=== PATIENT | male | born 1945 | race Two or more races ===

== ENCOUNTER 2019-10-23 13:15 | Outpatient (CLI) | payer MEDICARE, OTHER ==
[~2019-10-23] VITALS: Ht 165.1 cm; Wt 70.8 kg
[2019-10-23] MEDS ORDERED: BENAZEPRIL HCL10 MG ORAL (15:01)
[2019-10-23] MEDS ORDERED: METFORMIN HCL1000 M1 ORAL (15:01)
[2019-10-23] MEDS ORDERED: HYDROCHLOROTHIA25 MG ORAL (15:01)
[2019-10-23] MEDS ORDERED: FLOMAX0.4 MG ORAL (15:01)
[2019-10-23] MEDS ORDERED: ATORVASTATIN CA10 MG ORAL (15:01)
[2019-10-23 15:03] VITALS: BP 133/73
--- NOTE | 2019-10-23 19:45 | Consultation ---
DATE OF CONSULTATION: 10/23/2019 CONSULTING PHYSICIAN: Michael Owen M.D. REFERRING PHYSICIAN: Lucy Fontaine M.D. CHIEF COMPLAINT: Gastric cancer. HISTORY OF PRESENT ILLNESS: This is a 74-year-old male with metastatic gastric cancer, referred to us by oncologist, Dr. Fontaine, for evaluation for endoscopy. PAST MEDICAL HISTORY: 1. Diabetes. 2. BPH. 3. Hypercholesterolemia. 4. Hypertension. 5. Gastric CA. PAST SURGICAL HISTORY: Right total knee replacement, left shoulder surgery. MEDICATIONS: Please see medication reconciliation list. ALLERGIES: No known allergies. FAMILY HISTORY: No family history of GI malignancies. SOCIAL HISTORY: The patient denies any tobacco, alcohol, or drug abuse. REVIEW OF SYSTEMS: Positive for abdominal pain, mostly in the left lower quadrant and diarrhea. PHYSICAL EXAMINATION: VITAL SIGNS: Temperature 98, blood pressure is 133/70, pulse 61, respirations 20. Height is 5 feet 5 inches, weight is 156. HEENT: Normocephalic and atraumatic. Sclerae anicteric. NECK: Supple. No evidence of obvious adenopathy. CARDIOVASCULAR: Regular rate and rhythm. Plus S1 and S2. LUNGS: Clear to auscultation bilaterally. ABDOMEN: Positive bowel sounds. Soft and nontender. No rebound. No guarding. No peritoneal sign. EXTREMITIES: No cyanosis. No clubbing. No edema. ASSESSMENT AND PLAN: This is 74-year-old male with metastatic gastric cancer, was referred to us by oncologist for endoscopy. The patient is scheduled for this coming Monday to get a biopsy of the tissue for diagnosis. I want to thank, Dr. Lucy Fontaine, for this kind referral. Michael Owen M.D. DR: EBONY JOB#: [id number] CC: Lucy Fontaine M.D.; Fax#: [phone]
== END 2019-10-23 15:51 | disposition home or self-care (01) ==
LOC: PAN 13:15
DX: C16.9 Malignant neoplasm of stomach, unspecified (principal); E11.9 Type 2 diabetes mellitus without complications; N40.0 Benign prostatic hyperplasia without lower urinary tract symptoms; E78.00 Pure hypercholesterolemia, unspecified; I10 Essential (primary) hypertension; Z96.651 Presence of right artificial knee joint; R10.9 Unspecified abdominal pain; R19.7 Diarrhea, unspecified

== ENCOUNTER 2019-10-25 09:16 | Day surgery (SDC) | payer MEDICARE, OTHER ==
[~2019-10-25] VITALS: Ht 167.6 cm; Wt 70.3 kg
[2019-10-25] VITALS (7 sets, daily range): BP systolic 111–137; BP diastolic 67–76
--- NOTE | 2019-10-25 08:25 | Anethesia Preoperative Eval ---
Anesthesia Pre-op PMH/ROS General Date of Evaluation: Oct 25, 2019 Time of Evaluation: 08:22 Anesthesiologist: wagner ASA Score: ASA 4 Mallampati Score Class I : Soft palate, uvula, fauces, pillars visible Class II: Soft palate, uvula, fauces visible Class III: Soft palate, base of uvula visible Class IV: Only hard plate visible Mallampati Classification: Class II Surgeon: dionne Diagnosis: tumor in abdomen Surgical Procedure: egd Social History: smoking - nonsmoker Family History: no anesthesia problems Allergies: Coded Allergies: No Known Allergies (Unverified , 10/23/19) Medications: see eMAR Patient NPO?: Yes Past Medical History Cardiovascular: Reports: HTN, other - hypercholesterolemia Gastrointestinal/Genitourinary: Reports: other - gastric cancer, bph Endocrine: Reports: DM Musculoskeletal/Integumentary: Reports: OA, other - right tkr, left shoulder sx Anesthesia Pre-op Phys. Exam Physician Exam Last Vital Signs Date Time Temp Pulse Resp B/P (MAP) Pulse Ox O2 Delivery O2 Flow Rate FiO2 10/25/19 10:05 Room Air 10/25/19 10:02 98.1 53 20 120/72 95 Constitutional: NAD Neurologic: CN 2-12 intact Cardiovascular: RRR Respiratory: CTA Airway Exam Mallampati Score: Class II MO: limited Neck: flexible TMD: 2fb ROM: limited Anesthesia Pre-op A/P Studies Pre-op Studies: EKG - sinus bradycardia, possible anterolateral ischemia age undetermined Risk Assessment & Plan Assessment: asa4 Plan: mac Status Change Before Surgery: No Pre-Antibiotics Drug: Catherine Lan MD Oct 25, 2019 08:25
[~2019-10-25 09:16] MED LIST: ATORVASTATIN CA10 MG ORAL; Atropine Inj 1mg/10ml Syr IV PRN; BENAZEPRIL HCL10 MG ORAL; DiphenhydrAMINE 50mg/ml Inj IVP PRN; FLOMAX0.4 MG ORAL; HYDROCHLOROTHIA25 MG ORAL; LR 1000ml 1,000 ML IVLG SCH; METFORMIN HCL1000 M1 ORAL; Midazolam 2mg/2ml Inj IVP PRN; fentaNYL 100 mcg/2 mL IV PRN
--- NOTE | 2019-10-25 10:24 | Pre-Procedure Note/Attestation ---
Pre-Procedure Note/Attestation Complete Prior to Procedure Planned Procedure: not applicable Procedure Narrative: egd Indications for Procedure Pre-Operative Diagnosis: gastric mass Attestation I attest that I discussed the nature of the procedure; its benefits; risks and complications; and alternatives (and the risks and benefits of such alternatives ), prior to the procedure, with the patient (or the patient's legal assistance representative). I attest that, if there was a reasonable possibility of needing a blood transfusion, the patient (or the patient's legal assistance representative) was given the [facility] standardized written summary, pursuant to the [place] Blood Safety Act ([place] Health and Safety Code # 1645, as amended). I attest that I re-evaluated the patient just prior to the surgery and that there has been no change in the patient's H&P, except as documented below: Michael Owen MD Oct 25, 2019 10:24
--- NOTE | 2019-10-25 10:25 | Short Stay Surgery H&P ---
History of Present Illness History of Present Illness Chief Complaint see recent dictation HPI Napoleon Sheridan is a 74 year old male who was admitted on for Tumor In Abdomen Patient History Allergies: Coded Allergies: No Known Allergies (Unverified , 10/23/19) Medication History Scheduled Atorvastatin Calcium* (Lipitor*), 10 MG ORAL BEDTIME, (Reported) Benazepril Hcl* (Benazepril Hcl*), 10 MG ORAL DAILY, (Reported) Hydrochlorothiazide* (Hydrochlorothiazide*), 25 MG ORAL DAILY, (Reported) Metformin Hcl* (Metformin Hcl*), 1,000 MG ORAL DAILY, (Reported) Tamsulosin HCl (Flomax), 0.4 MG ORAL DAILY, (Reported) Physical Exam Vital Signs Last Vital Signs Date Time Temp Pulse Resp B/P (MAP) Pulse Ox O2 Delivery O2 Flow Rate FiO2 10/25/19 10:05 Room Air 10/25/19 10:02 98.1 53 20 120/72 95 Plan Attestation Are the patient's medical conditions optimized for surgery? Michael Owen MD Oct 25, 2019 10:25
--- NOTE | 2019-10-25 10:56 | Endoscopy Procedure Note ---
Endoscopy Procedure Note General Indication for Procedure: gastric mass Procedures Performed: EGD Operative Findings/Diagnosis: same Specimen: yes Pt Tolerated Procedure Well: Yes Estimated Blood Loss: none Anesthesia Anesthesiologist: varun freeman Anesthesia: general - varun freeman, SARA Inserted Devices Implant(s) used?: No GI Core Measures 50 yrs or older w/o bx or poly: Not Applicable 10yrs. F/U recommended: Not Applicable Michael Owen MD Oct 25, 2019 10:56
[2019-10-25] MEDS ORDERED: LR 1000ml ONE (11:00)
[2019-10-25] MEDS ORDERED: Propofol 200mg/20ml IV ONE (11:00)
[2019-10-25] MEDS ORDERED: Lidocaine 1% MPF 10mg/ml 5ml ONE (11:00)
--- NOTE | 2019-10-25 11:13 | Immediate Post-Op Evaluation ---
Immediate Post-Op Evalulation Immediate Post-Op Evalulation Procedure: egd w/bx Date of Evaluation: Oct 25, 2019 Time of Evaluation: 11:12 IV Fluids: 250ml lr Blood Products: none Estimated Blood Loss: negligible Blood Pressure Systolic: 125 Blood Pressure Diastolic: 65 Pulse Rate: 51 Respiratory Rate: 18 O2 Sat by Pulse Oximetry: 97 Temperature (Fahrenheit): 97.9 Pain Score (1-10): 0 Nausea: No Vomiting: No Complications none Patient Status: awake, reacts, patent Hydration Status: adequate Drug: Catherine Lan MD Oct 25, 2019 11:13
--- NOTE | 2019-10-25 11:14 | 48 Hour Post Anesthesia Eval ---
Post Anesthesia Evaluation Procedure: egd w/bx Date of Evaluation: Oct 25, 2019 Time of Evaluation: 11:14 Blood Pressure Systolic: 120 0: 72 Pulse Rate: 60 Respiratory Rate: 18 Temperature (Fahrenheit): 97.9 O2 Sat by Pulse Oximetry: 98 Airway: patent Nausea: No Vomiting: No Pain Intensity: 0 Hydration Status: adequate Cardiopulmonary Status: stable Mental Status/LOC: patient returned to baseline Post-Anesthesia Complications: none Follow-up care needed: N/A Catherine Arndt MD Oct 25, 2019 11:14
--- NOTE | 2019-10-25 15:15 | Procedure Note ---
DATE OF PROCEDURE: 10/25/2019 SURGEON: Michael Owen M.D. REFERRING PHYSICIAN: Lucy Fontaine M.D. PROCEDURE: Upper endoscopy with biopsy. ANESTHESIA: Per Dr. Hook. INSTRUMENT: Olympus adult flexible upper endoscope. INDICATION: Gastric mass. REASON FOR PROCEDURE: The procedure, risks, benefits, and possible consequences, including hemorrhage, aspiration, perforation and infection, and alternative treatments, were explained to the patient/legal guardian by Dr. Michael Owen and the patient/legal guardian understood and accepted these risks. DESCRIPTION OF PROCEDURE: After informed consent was obtained and the patient was adequately sedated, Olympus upper endoscope was advanced from mouth into the second portion of the duodenum and retroflexion was performed in the stomach. The patient had evidence of GE junction at about 35 cm incisors. Just below the GE junction, there was a mass. This mass covered almost all of the cardia of the stomach. more down into the body. Multiple biopsies from this mass was obtained for diagnosis. At this time, the scope was retrieved and procedure was terminated. SUMMARY OF FINDINGS: Tumor, mostly in the cardia of the stomach, status post numerous biopsies. RECOMMENDATIONS: 1. Follow up biopsy results and treat accordingly. 2. The patient to follow up with Dr. Lucy Fontaine, Hematology/Oncology for a followup. I want to thank, Dr. Fontaine, for this kind referral. Michael Owen M.D. DR: EBONY JOB#: [id number] CC: Lucy Fontaine M.D.; Fax#: [phone]
== END 2019-10-25 12:30 | disposition home or self-care (01) ==
LOC: GAS 09:16
DX: K31.9 Disease of stomach and duodenum, unspecified (principal); Z79.899 Other long term (current) drug therapy; Z79.84 Long term (current) use of oral hypoglycemic drugs; I10 Essential (primary) hypertension; E78.00 Pure hypercholesterolemia, unspecified; Z85.00 Personal history of malignant neoplasm of unspecified digestive organ; E11.9 Type 2 diabetes mellitus without complications; M19.90 Unspecified osteoarthritis, unspecified site; R00.1 Bradycardia, unspecified
CPT/HCPCS: 43239; 82962; 93005; J2704; J7120; 94003; 94150

== ENCOUNTER 2019-10-29 09:42 | Outpatient (CLI) | payer MEDICARE, OTHER ==
[~2019-10-29 09:42] MED LIST changes: -Atropine Inj 1mg/10ml Syr IV PRN; -DiphenhydrAMINE 50mg/ml Inj IVP PRN; -LR 1000ml 1,000 ML IVLG SCH; -Midazolam 2mg/2ml Inj IVP PRN; -fentaNYL 100 mcg/2 mL IV PRN
--- NOTE | 2019-10-29 11:19 | General Progress Note ---
Assessment/Plan Assessment/Plan: gastric ca EGD reviewed with the patient fu oncology Subjective ROS Limited/Unobtainable: Yes Allergies: Coded Allergies: No Known Allergies (Unverified , 10/23/19) Objective General Appearance: alert EENT: normal ENT inspection Neck: supple Cardiovascular: normal rate Respiratory/Chest: lungs clear Abdomen: normal bowel sounds, non tender, soft Michael Owen MD Oct 29, 2019 11:19
[2019-10-29 13:44] VITALS: BP 122/71
== END 2019-10-29 11:42 | disposition home or self-care (01) ==
LOC: PAN 09:42
DX: C16.9 Malignant neoplasm of stomach, unspecified (principal)

== ENCOUNTER 2020-09-21 14:54 | Inpatient (IN) | payer MEDICARE, OTHER ==
[~2020-09-21] VITALS: Ht 162.6 cm; Wt 63.5 kg
[2020-09-21 15:00] VITALS: BP 131/72
--- NOTE | 2020-09-21 15:00 | NUR ---
ED Nurse Note: Pt brought in by ambulance from Dr. Fontaine's office c/o generalized weakness and SOB during chemotherapy treatment. Pt is being treated for stomach ca. Respirations even, mildly labored on 3 L NC. Intermittent non productive cough noted. Pt A+Ox4, calm and cooperative and speaking in complete sentences. Pt is febrile 100.1 orally. HR elevated @ 111, sinus on the monitor. All other vitals stable as documented.
--- NOTE | 2020-09-21 15:00 | NUR ---
Note jean-claudeone in EDM - 09/21/20 at 1731 by GENNA ED Nurse Note: Pt brought in by ambulance from Dr. Fontaine's office c/o generalized weakness and SOB during chemotherapy treatment. Pt is being treated for stomach ca. Respirations even and unlabored on 3 L NC. Intermittent non productive cough noted. Pt A+Ox4, calm and cooperative and speaking in complete sentences. Vitals stable as documented.
--- NOTE | 2020-09-21 15:10 | NUR ---
ED Nurse Note: Left chest portacath noted and accessed before arrival. Patent and intact
[2020-09-21] MEDS ORDERED: Acetaminophen 500mg (ES) tab ORAL ONE (15:45)
[2020-09-21 16:04] LABS: HEMATOCRIT 34.7 % (42.0-52.0); HEMOGLOBIN 11.6 G/DL (14.2-18.0); MEAN CORPUSCULAR VOLUME 96 FL (80-99); PLATELET COUNT 159 K/UL (150-450); RED BLOOD COUNT 3.63 M/UL (4.70-6.10); WHITE BLOOD COUNT 3.9 K/UL (4.8-10.8)
--- NOTE | 2020-09-21 16:11 | Diagnostic Imaging Report ---
Indication: Reason For Exam: SOB Technique: Single AP view of the chest. Comparison: None. Findings: The cardiomediastinal silhouette is within normal limits. There are patchy bilateral airspace opacities and diffuse interstitial opacities. There is interstitial edema. Small bilateral pleural effusions with associated streaky airspace opacities. No pneumothorax. Left approach infusion port which is accessed terminates in the expected location in the SVC. IMPRESSION: 1. Interstitial pulmonary edema with associated bilateral patchy airspace opacities which could represent alveolar edema but superimposed pneumonia should be excluded clinically. 2. Small bilateral pleural effusions with compressive atelectasis.
[2020-09-21 16:28] LABS: ANION GAP 12 mmol/L (5-15); BLOOD UREA NITROGEN 16 mg/dL (7-18); CALCIUM 7.1 MG/DL (8.5-10.1); CARBON DIOXIDE 21 MMOL/L (21-32); CHLORIDE 105 MMOL/L (98-107); CREATININE 0.9 MG/DL (0.55-1.30); POTASSIUM 3.3 MMOL/L (3.5-5.1); SODIUM 138 MMOL/L (136-145)
[2020-09-21] MEDS ORDERED: Azithromycin 500 MG in NS 275 ML IV ONE (16:30)
[2020-09-21] MEDS ORDERED: cefTRIAXone 1 GM in NS 55 ML IVPB ONE (16:30)
[2020-09-21 16:39] LABS: ALANINE AMINOTRANSFERASE 50 U/L (12-78); ALBUMIN 2.4 G/DL (3.4-5.0); ALBUMIN/GLOBULIN RATIO 0.5 (1.0-2.7); ALKALINE PHOSPHATASE 205 U/L (46-116); ASPARTATE AMINO TRANSFERASE 63 U/L (15-37); BILIRUBIN,TOTAL 1.1 MG/DL (0.2-1.0)
[2020-09-21 16:41] LABS: BILIRUBIN,DIRECT 0.3 MG/DL (0.0-0.3)
[2020-09-21 17:00] VITALS: BP 139/74
[2020-09-21 17:12] LABS: INR 1.1 (0.9-1.1); PARTIAL THROMBOPLASTIN TIME 32 SEC (23-33)
[2020-09-21 17:16] LABS: APPEARANCE,URINE CLEAR; BILIRUBIN, URINE NEGATIVE (NEGATIVE); GLUCOSE, URINE (UA) NEGATIVE (NEGATIVE); KETONES,URINE 1+ (NEGATIVE); LEUKOCYTE ESTERASE ,URINE NEGATIVE (NEGATIVE); NITRITE,URINE NEGATIVE (NEGATIVE); PH,URINE 5 (4.5-8.0); PROTEIN,URINE 3+ (NEGATIVE); UROBILINOGEN,URINE 1 MG/DL (0.0-1.0)
[2020-09-21 17:26] LABS: COLOR,URINE YELLOW
--- NOTE | 2020-09-21 17:36 | Emergency Room Report ---
History of Present Illness General Chief Complaint: Generalized Weakness Source: Patient, Medical Record Present Illness HPI 75-year-old male presents for shortness of breath. Brought in by EMS from clinic across the street. Was receiving infusion therapy when he started to feel short of breath. History of stomach cancer. Noted to have a cough which has been chronic for some time. Low-grade fever. Denies chest pain. No other aggravating relieving factors. Denies any other associated symptoms Allergies: Coded Allergies: No Known Allergies (Unverified , 10/23/19) COVID-19 Screening Contact w/high risk pt: No Experienced COVID-19 symptoms?: No COVID-19 Testing performed FRUIT TESTER: No Patient History Past Medical History: DM, HTN, other - stomach ca Past Surgical History: none Pertinent Family History: none Social History: Denies: smoking, alcohol use, drug use Immunizations: UTD Reviewed Nursing Documentation: PMH: Agreed; PSxH: Agreed Nursing Documentation-PMH Hx Cardiac Problems: Yes Hx Hypertension: Yes Hx Diabetes: Yes Hx Cancer: Yes - STOMACH CA Hx Gastrointestinal Problems: Yes - gastric CA Hx Neurological Problems: No Review of Systems All Other Systems: negative except mentioned in HPI Physical Exam Vital Signs Date Time Temp Pulse Resp B/P (MAP) Pulse Ox O2 Delivery O2 Flow Rate FiO2 09/21/20 14:51 100.0 125 18 137/75 (95) 96 Room Air 09/21/20 15:00 3.0 Sp02 EP Interpretation: reviewed, normal General Appearance: no apparent distress, alert, GCS 15, non-toxic Head: normocephalic, atraumatic Eyes: bilateral eye normal inspection, bilateral eye PERRL ENT: hearing grossly normal, normal pharynx, no angioedema, normal voice Neck: full range of motion, supple/symm/no masses Respiratory: chest non-tender, lungs clear, normal breath sounds, speaking full sentences Cardiovascular #1: regular rate, rhythm, no edema Cardiovascular #2: 2+ carotid (R), 2+ carotid (L), 2+ radial (R), 2+ radial (L), 2+ dorsalis pedis (R), 2+ dorsalis pedis (L) Gastrointestinal: normal bowel sounds, non tender, soft, non-distended, no guarding, no rebound Rectal: deferred Genitourinary: normal inspection, no CVA tenderness Musculoskeletal: back normal, normal range of motion, gait/station normal, non- tender Neurologic: alert, motor strength/tone normal, oriented x3, sensory intact, responsive, speech normal Psychiatric: judgement/insight normal, memory normal, mood/affect normal, no suicidal/homicidal ideation Reflexes: 3+ bicep (R), 3+ bicep (L), 3+ tricep (R), 3+ tricep (L), 3+ knee (R), 3+ knee (L) Skin: other - see nursing notes Lymphatic: no adenopathy Medical Decision Making Diagnostic Impression: Primary Impression: Episode of generalized weakness Additional Impressions: Pneumonia Qualified Codes: J18.9 - Pneumonia, unspecified organism Sepsis Qualified Codes: A41.9 - Sepsis, unspecified organism ER Course Hospital Course 75-year-old male presents with shortness of breath after receiving infusion. History of stomach CA. Cough. Differential diagnoses include: Pneumonia, CHF exacerbation, pneumothorax, fluid overload Clinical course Patient placed on stretcher. Isolation. I wore full PPE. On manager monitoring. After initial history and physical, I ordered labs, IV fluids, EKG, chest x-ray, blood cultures, UA. Patient placed on nasal cannula with O2 saturation improving Labs -leukopenia noted, hemoglobin/hematocrit stable, electrolytes okay, lactic elevated, troponin negative Rapid Covid negative CXR - patchy bilateral infiltrates Given 30 cc/kg fluid bolus. Given broad-spectrum antibiotics. Spoke with Dr. Fontaine Case discussed with Dr. Martínez and he agreed to the patient to his service for further care and support I feel this is a highly complex case requiring extensive working including EKG/Rhythm strip, Xray/CT/US, Blood/urine lab work, repeat exams while in ED, and administration of strong opiates/narcotics for pain control, admission to hospital or close patient follow up. Diagnosis - episode of generalized weakness, pneumonia, sepsis Patient admitted to telemetry in serious condition Laboratory Tests Test 09/21/20 15:05 09/21/20 16:15 09/21/20 16:25 09/21/20 20:49 White Blood Count 3.9 K/UL (4.8-10.8) L Red Blood Count 3.63 M/UL (4.70-6.10) L Hemoglobin 11.6 G/DL (14.2-18.0) L Hematocrit 34.7 % (42.0-52.0) L Mean Corpuscular Volume 96 FL (80-99) Mean Corpuscular Hemoglobin 32.0 PG (27.0-31.0) H Mean Corpuscular Hemoglobin Concent 33.4 G/DL (32.0-36.0) Red Cell Distribution Width 17.0 % (11.6-14.8) H Platelet Count 159 K/UL (150-450) Mean Platelet Volume 5.8 FL (6.5-10.1) L Neutrophils (%) (Auto) % (45.0-75.0) Lymphocytes (%) (Auto) % (20.0-45.0) Monocytes (%) (Auto) % (1.0-10.0) Eosinophils (%) (Auto) % (0.0-3.0) Basophils (%) (Auto) % (0.0-2.0) Differential Total Cells Counted 100 Neutrophils % (Manual) 75 % (45-75) Lymphocytes % (Manual) 9 % (20-45) L Monocytes % (Manual) 8 % (1-10) Eosinophils % (Manual) 0 % (0-3) Basophils % (Manual) 0 % (0-2) Band Neutrophils 8 % (0-8) Platelet Estimate Adequate Platelet Morphology Normal Polychromasia 1+ Anisocytosis 1+ Prothrombin Time 11.7 SEC (9.30-11.50) H Prothromb Time International Ratio 1.1 (0.9-1.1) Activated Partial Thromboplast Time 32 SEC (23-33) D-Dimer > 35.20 mg/L FEU Sodium Level 138 MMOL/L (136-145) Potassium Level 3.3 MMOL/L (3.5-5.1) L Chloride Level 105 MMOL/L (98-107) Carbon Dioxide Level 21 MMOL/L (21-32) Anion Gap 12 mmol/L (5-15) Blood Urea Nitrogen 16 mg/dL (7-18) Creatinine 0.9 MG/DL (0.55-1.30) Estimat Glomerular Filtration Rate > 60 mL/min (>60) Glucose Level 141 MG/DL (74-106) H Lactic Acid Level 3.70 mmol/L (0.4-2.0) H 3.60 mmol/L (0.66-2.22) H Calcium Level 7.1 MG/DL (8.5-10.1) L Total Bilirubin 1.1 MG/DL (0.2-1.0) H Direct Bilirubin 0.3 MG/DL (0.0-0.3) Aspartate Amino Transf (AST/SGOT) 63 U/L (15-37) H Alanine Aminotransferase (ALT/SGPT) 50 U/L (12-78) Alkaline Phosphatase 205 U/L (46-116) H Troponin I 0.012 ng/mL (0.000-0.056) Pro-B-Type Natriuretic Peptide 105 pg/mL (0-125) Total Protein 6.8 G/DL (6.4-8.2) Albumin 2.4 G/DL (3.4-5.0) L Globulin 4.4 g/dL Albumin/Globulin Ratio 0.5 (1.0-2.7) L Urine Color Yellow Urine Appearance Clear Urine pH 5 (4.5-8.0) Urine Specific [place] 1.015 (1.005-1.035) Urine Protein 3+ (NEGATIVE) H Urine Glucose (UA) Negative (NEGATIVE) Urine Ketones 1+ (NEGATIVE) H Urine Blood 2+ (NEGATIVE) H Urine Nitrite Negative (NEGATIVE) Urine Bilirubin Negative (NEGATIVE) Urine Urobilinogen 1 MG/DL (0.0-1.0) H Urine Leukocyte Esterase Negative (NEGATIVE) Urine RBC 0-2 /HPF (0 - 0) H Urine WBC 0-2 /HPF (0 - 0) Urine Squamous Epithelial Cells None /LPF (NONE/OCC) Urine Amorphous Sediment Few /LPF (NONE) H Urine Bacteria Few /HPF (NONE) Ferritin 1678 NG/ML (8-388) H Lactate Dehydrogenase 372 U/L (81-234) H C-Reactive Protein, Quantitative 5.6 mg/dL (0.00-0.90) H POC Whole Blood Glucose Pending EKG Diagnostic Results Troponin ordered: Yes Rate: tachycardiac Rhythm: NSR ST Segments: no acute changes ASA given to the pt in ED: No Rhythm Strip Diag. Results EP Interpretation: yes Rhythm: NSR, no PVC's, no ectopy Chest X-Ray Diagnostic Results Chest X-Ray Diagnostic Results : Chest X-Ray Ordered: Yes # of Views/Limited/Complete: 1 View Indication: Shortness of Breath EP Interpretation: Yes Interpretation: no pneumothorax, other - bilateral patchy opacities Impression: Other - pneumonia Electronically Signed by: Electronically signed by Bautista Moise MD Last Vital Signs Date Time Temp Pulse Resp B/P (MAP) Pulse Ox O2 Delivery O2 Flow Rate FiO2 09/21/20 16:33 99.9 09/21/20 15:00 111 26 Nasal Cannula 3.0 09/21/20 15:00 131/72 97 Status: improved Disposition: ADMITTED INPATIENT Condition: Serious Referrals: NON PHYSICIAN (PCP) Bautista Moise MD Sep 21, 2020 17:36
[2020-09-21] MEDS ORDERED: LORazepam Inj 2mg/ml 1ml IV PRN (19:15)
[2020-09-21] MEDS ORDERED: Albuterol/Ipratropium 3ml neb HHN PRN (19:15)
[2020-09-21] MEDS ORDERED: Miralax 17gm pkt ORAL PRN (19:15)
[2020-09-21] MEDS ORDERED: Promethazine/Codeine 5ml UD ORAL PRN (19:15)
--- NOTE | 2020-09-21 19:19 | NUR ---
HAND-OFF: Report given to NICKOLAS Mccormick. Pt in stable condition; plan of care endorsed.
[2020-09-21] MEDS ORDERED: CLOTRIMAZOLE15 GM TOPIC (19:28)
[2020-09-21] MEDS ORDERED: LANSOPRAZOLE30 MG ORAL (19:28)
[2020-09-21] MEDS ORDERED: SIMVASTATIN10 MG ORAL (19:28)
[2020-09-21] MEDS ORDERED: OYSCO 500+D TA1 EAC1 PO (19:28)
[2020-09-21] MEDS ORDERED: HYDROCHLOROTHIA25 MG ORAL (19:28)
[2020-09-21] MEDS ORDERED: METFORMIN HCL850 M1 ORAL (19:28)
[2020-09-21] MEDS ORDERED: COLACE100 MG ORAL (19:28)
[2020-09-21] MEDS ORDERED: GABAPENTIN100 MG ORAL (19:28)
[2020-09-21] MEDS ORDERED: BENAZEPRIL HCL10 MG ORAL (19:28)
[2020-09-21] MEDS ORDERED: PROCHLORPERAZINE5 MG ORAL (19:28)
[2020-09-21] MEDS ORDERED: LOSARTAN POTASS50 MG ORAL (19:28)
[2020-09-21] MEDS ORDERED: FLOMAX0.4 MG ORAL (19:28)
[2020-09-21] MEDS ORDERED: LORATADINE10 M1 PO (19:28)
[2020-09-21] MEDS ORDERED: NEUPOGEN300 MCG/0. IJ (19:32)
--- NOTE | 2020-09-21 20:04 | NUR ---
ED Nurse Note: report given to NICKOLAS Tomas. Will ask tele charge and call back if able to accept pt d/t lactic >3. ED charge aware.
--- NOTE | 2020-09-21 20:30 | NUR ---
ED Nurse Note: pt transfered to tele via gurmatthew accompanied by 2 workforce staffing advisor, per EDMD ok to transfer. Belongings and admission packet sent with pt.
[2020-09-21 20:39] VITALS: BP 108/49
[2020-09-21] MEDS ORDERED: Cefepime HCl 2 GM in D5W 110 ML IV ONE (21:00)
[2020-09-21] MEDS ORDERED: Vancomycin 1 GM in D5W 275 ML IVPB ONE (21:00)
[2020-09-21] MEDS: Heparin 5000 units/ml inj SUBQ SCH (21:12)
[2020-09-21] MEDS: NovoLOG Insulin Flexpen SUBQ SCH (21:19)
[2020-09-22] VITALS: BP 116/70
[2020-09-22 04:00] VITALS: BP 99/48
[2020-09-22] MEDS: NovoLOG Insulin Flexpen SUBQ SCH ×4 (05:56→21:00)
[2020-09-22 07:35] LABS: BASOPHILS % (AUTO) 1.1 % (0.0-2.0); EOSINOPHILS % (AUTO) 0.2 % (0.0-3.0); HEMATOCRIT 28.8 % (42.0-52.0); HEMOGLOBIN 10.1 G/DL (14.2-18.0); LYMPHOCYTES % (AUTO) 2.8 % (20.0-45.0); MEAN CORPUSCULAR VOLUME 92 FL (80-99); MONOCYTES % (AUTO) 12.3 % (1.0-10.0); NEUTROPHILS % (AUTO) 83.5 % (45.0-75.0); PLATELET COUNT 165 K/UL (150-450); RED BLOOD COUNT 3.14 M/UL (4.70-6.10); WHITE BLOOD COUNT 7.9 K/UL (4.8-10.8)
[2020-09-22 07:39] LABS: ALBUMIN 2.2 G/DL (3.4-5.0); BLOOD UREA NITROGEN 22 mg/dL (7-18); CALCIUM 7.4 MG/DL (8.5-10.1); CARBON DIOXIDE 23 MMOL/L (21-32); CHLORIDE 107 MMOL/L (98-107); CREATININE 1.1 MG/DL (0.55-1.30); PHOSPHORUS 3.1 MG/DL (2.5-4.9); POTASSIUM 3.8 MMOL/L (3.5-5.1); SODIUM 139 MMOL/L (136-145)
[2020-09-22 07:40] LABS: ANION GAP 9 mmol/L (5-15)
--- NOTE | 2020-09-22 07:43 | NUR ---
NURSE HAND-OFF REPORT: Important Events on Shift: pt admitted and spike fever Patient Status: stable Diet: ccho medium Pending Orders: y Pending Results/Labs:y Pending MD notification:y Latest Vital Signs: Temperature 97.7 , Pulse 48 , B/P 99 /48 , Respiratory Rate 20 , O2 SAT 98 , Nasal Cannula, O2 Flow Rate 2.0 . Vital Sign Comment: EKG Rhythm: Sinus Bradycardia Rhythm change?: N MD Notified?: - MD Response: Latest Turner Fall Score: 15 Fall Risk: Low Risk Safety Measures: Call light Within Reach, Bed Alarm , Side Rails Side Rails x2, Bed position Low and Locked. Fall Precautions: Door Sign Patient Fall Education Report given to NICKOLAS Conrad.
--- NOTE | 2020-09-22 07:44 | NUR ---
NURSE NOTES: Received patient in bed asleep. No SOB or acute distress. Portacath on left upper chest intact, no bleeding on dressing noted. HOB elevated. Bed locked in low position. Call light within reach. Will continue plan of care.
[2020-09-22 08:00] VITALS: BP 105/49
--- NOTE | 2020-09-22 08:25 | Consultation ---
History of Present Illness General Date patient seen: Sep 22, 2020 Time patient seen: 12:09 Chief Complaint: Generalized Weakness Referring physician: PCP Reason for Consultation: Sepsis Present Illness HPI 75yo M who p/w SOB from clinic. Was getting infusion tx when started to feel SOB. H/o stomach CA. Also with chronic cough, low-grade fever. Here, pt with fever to 100.9 then hypothermic to 96. First with leukopenia to 3.9, now improved to 7s. Rapid COVID testing neg. On floor on 2L NC. Pt is doing well on RA now. He was getting infusion of chemotx and came to hospital because of problems breathing, endorses cough and mild SOB. No COVID contacts. Denies any pain, diarrhea or other complaint. No allergies to abx. Allergies: Coded Allergies: No Known Allergies (Unverified , 10/23/19) Medication History Scheduled Atorvastatin Calcium* (Lipitor*), 10 MG ORAL BEDTIME, (Reported) Benazepril Hcl* (Benazepril Hcl*), 10 MG ORAL DAILY, (Reported) Benazepril Hcl* (Benazepril Hcl*), 10 MG ORAL DAILY, (Reported) Clotrimazole* (Lotrimin*), 1 APPLIC TOPIC TWICE A DAY, (Reported) Docusate Sodium* (Colace*), 100 MG ORAL DAILY, (Reported) Gabapentin* (Gabapentin*), 300 MG ORAL THREE TIMES A DAY, (Reported) Hydrochlorothiazide* (Hydrochlorothiazide*), 25 MG ORAL DAILY, (Reported) Hydrochlorothiazide* (Hydrochlorothiazide*), 25 MG ORAL DAILY, (Reported) Lansoprazole* (Lansoprazole*), 30 MG ORAL DAILY, (Reported) Loratadine (Claritin*), 10 MG PO DAILY, (Reported) Losartan Potassium* (Losartan Potassium*), 50 MG ORAL DAILY, (Reported) Metformin Hcl* (Metformin Hcl*), 1,000 MG ORAL DAILY, (Reported) Metformin Hcl* (Metformin Hcl*), 1,000 MG ORAL DAILY, (Reported) Prochlorperazine Maleate* (Compazine*), 10 MG ORAL Q6H, (Reported) Simvastatin (Zocor), 10 MG ORAL BEDTIME, (Reported) Tamsulosin HCl (Flomax), 0.4 MG ORAL DAILY, (Reported) Tamsulosin HCl (Flomax), 0.4 MG ORAL DAILY, (Reported) Miscellaneous Medications Calcium Carbonate/Vitamin D3 (Oysco 500+D Tablet), 1 EACH PO, (Reported) Filgrastim (Neupogen), 300 MCG IJ, (Reported) Patient History Healthcare decision maker Resuscitation status Advanced Directive on File Review of Systems ROS Narrative 10-point ROS neg except as noted in HPI Physical Exam Physical Exam Narrative Gen: NAD HEENT: NCAT Pulm: BL chest rise on RA Abd: Non-distended Ext: No c/c/e Skin: No visible rashes Neuro: Awake, alert, interactive Last 24 Hour Vital Signs Date Time Temp Pulse Resp B/P (MAP) Pulse Ox O2 Delivery O2 Flow Rate FiO2 09/22/20 08:00 97.5 68 20 105/49 (67) 97 09/22/20 04:00 46 09/22/20 04:00 97.7 48 20 99/48 (65) 98 09/22/20 00:00 54 09/22/20 00:00 96.3 60 20 116/70 (85) 97 09/21/20 22:51 Nasal Cannula 2.0 09/21/20 21:38 96.3 09/21/20 20:40 98.9 76 22 122/84 100 Nasal Cannula 3.0 09/21/20 20:39 100.9 63 22 108/49 (68) 100 09/21/20 17:00 99.8 108 18 139/74 96 Nasal Cannula 3.0 09/21/20 16:33 99.9 09/21/20 15:00 111 26 Nasal Cannula 3.0 09/21/20 15:00 100.1 111 18 131/72 97 Nasal Cannula 3.0 09/21/20 14:51 100.0 125 18 137/75 (95) 96 Room Air Intake and Output 09/21/20 09/22/20 19:00 07:00 Output Total 500 ml Balance -500 ml Output Urine Total 500 ml # Voids 1 Laboratory Tests Test 09/21/20 15:05 09/21/20 16:15 09/21/20 16:25 09/21/20 20:49 White Blood Count 3.9 K/UL (4.8-10.8) L Red Blood Count 3.63 M/UL (4.70-6.10) L Hemoglobin 11.6 G/DL (14.2-18.0) L Hematocrit 34.7 % (42.0-52.0) L Mean Corpuscular Volume 96 FL (80-99) Mean Corpuscular Hemoglobin 32.0 PG (27.0-31.0) H Mean Corpuscular Hemoglobin Concent 33.4 G/DL (32.0-36.0) Red Cell Distribution Width 17.0 % (11.6-14.8) H Platelet Count 159 K/UL (150-450) Mean Platelet Volume 5.8 FL (6.5-10.1) L Neutrophils (%) (Auto) % (45.0-75.0) Lymphocytes (%) (Auto) % (20.0-45.0) Monocytes (%) (Auto) % (1.0-10.0) Eosinophils (%) (Auto) % (0.0-3.0) Basophils (%) (Auto) % (0.0-2.0) Differential Total Cells Counted 100 Neutrophils % (Manual) 75 % (45-75) Lymphocytes % (Manual) 9 % (20-45) L Monocytes % (Manual) 8 % (1-10) Eosinophils % (Manual) 0 % (0-3) Basophils % (Manual) 0 % (0-2) Band Neutrophils 8 % (0-8) Platelet Estimate Adequate Platelet Morphology Normal Polychromasia 1+ Anisocytosis 1+ Prothrombin Time 11.7 SEC (9.30-11.50) H Prothromb Time International Ratio 1.1 (0.9-1.1) Activated Partial Thromboplast Time 32 SEC (23-33) D-Dimer > 35.20 mg/L FEU Sodium Level 138 MMOL/L (136-145) Potassium Level 3.3 MMOL/L (3.5-5.1) L Chloride Level 105 MMOL/L (98-107) Carbon Dioxide Level 21 MMOL/L (21-32) Anion Gap 12 mmol/L (5-15) Blood Urea Nitrogen 16 mg/dL (7-18) Creatinine 0.9 MG/DL (0.55-1.30) Estimat Glomerular Filtration Rate > 60 mL/min (>60) Glucose Level 141 MG/DL (74-106) H Lactic Acid Level 3.70 mmol/L (0.4-2.0) H 3.60 mmol/L (0.66-2.22) H Calcium Level 7.1 MG/DL (8.5-10.1) L Total Bilirubin 1.1 MG/DL (0.2-1.0) H Direct Bilirubin 0.3 MG/DL (0.0-0.3) Aspartate Amino Transf (AST/SGOT) 63 U/L (15-37) H Alanine Aminotransferase (ALT/SGPT) 50 U/L (12-78) Alkaline Phosphatase 205 U/L (46-116) H Troponin I 0.012 ng/mL (0.000-0.056) Pro-B-Type Natriuretic Peptide 105 pg/mL (0-125) Total Protein 6.8 G/DL (6.4-8.2) Albumin 2.4 G/DL (3.4-5.0) L Globulin 4.4 g/dL Albumin/Globulin Ratio 0.5 (1.0-2.7) L Urine Color Yellow Urine Appearance Clear Urine pH 5 (4.5-8.0) Urine Specific [place] 1.015 (1.005-1.035) Urine Protein 3+ (NEGATIVE) H Urine Glucose (UA) Negative (NEGATIVE) Urine Ketones 1+ (NEGATIVE) H Urine Blood 2+ (NEGATIVE) H Urine Nitrite Negative (NEGATIVE) Urine Bilirubin Negative (NEGATIVE) Urine Urobilinogen 1 MG/DL (0.0-1.0) H Urine Leukocyte Esterase Negative (NEGATIVE) Urine RBC 0-2 /HPF (0 - 0) H Urine WBC 0-2 /HPF (0 - 0) Urine Squamous Epithelial Cells None /LPF (NONE/OCC) Urine Amorphous Sediment Few /LPF (NONE) H Urine Bacteria Few /HPF (NONE) Ferritin 1678 NG/ML (8-388) H Lactate Dehydrogenase 372 U/L (81-234) H C-Reactive Protein, Quantitative 5.6 mg/dL (0.00-0.90) H POC Whole Blood Glucose Pending Test 09/22/20 05:45 09/22/20 06:43 POC Whole Blood Glucose Pending White Blood Count 7.9 K/UL (4.8-10.8) # Red Blood Count 3.14 M/UL (4.70-6.10) L Hemoglobin 10.1 G/DL (14.2-18.0) L Hematocrit 28.8 % (42.0-52.0) L Mean Corpuscular Volume 92 FL (80-99) Mean Corpuscular Hemoglobin 32.0 PG (27.0-31.0) H Mean Corpuscular Hemoglobin Concent 34.9 G/DL (32.0-36.0) Red Cell Distribution Width 17.0 % (11.6-14.8) H Platelet Count 165 K/UL (150-450) Mean Platelet Volume 6.1 FL (6.5-10.1) L Neutrophils (%) (Auto) 83.5 % (45.0-75.0) H Lymphocytes (%) (Auto) 2.8 % (20.0-45.0) L Monocytes (%) (Auto) 12.3 % (1.0-10.0) H Eosinophils (%) (Auto) 0.2 % (0.0-3.0) Basophils (%) (Auto) 1.1 % (0.0-2.0) Sodium Level 139 MMOL/L (136-145) Potassium Level 3.8 MMOL/L (3.5-5.1) Chloride Level 107 MMOL/L (98-107) Carbon Dioxide Level 23 MMOL/L (21-32) Anion Gap 9 mmol/L (5-15) Blood Urea Nitrogen 22 mg/dL (7-18) H Creatinine 1.1 MG/DL (0.55-1.30) Estimat Glomerular Filtration Rate > 60 mL/min (>60) Glucose Level 95 MG/DL (74-106) Calcium Level 7.4 MG/DL (8.5-10.1) L Phosphorus Level 3.1 MG/DL (2.5-4.9) Albumin 2.2 G/DL (3.4-5.0) L Microbiology Date/Time Source Procedure Growth Status 09/21/20 16:25 Nasopharynx SARS-CoV-2 RdRp Gene Assay - Final Complete Height (Feet): 5 Height (Inches): 4.00 Weight (Pounds): 140 Medications Current Medications Medications (Trade) Dose Ordered Sig/Kali Route PRN Reason Start Time Stop Time Status Last Admin Dose Admin Acetaminophen (Tylenol) 650 mg Q4H PRN ORAL Temp >100.5 09/21/20 19:15 1/6/21 19:14 09/21/20 21:08 Albuterol/ Ipratropium (Albuterol/ Ipratropium) 3 ml Q4H PRN HHN Shortness of Breath 09/21/20 19:15 09/26/20 19:14 Cefepime HCl 2 gm/ Dextrose 110 ml @ 220 mls/hr Q24H IV 09/22/20 09:00 09/29/20 08:59 Dextrose (Dextrose 50%) 25 ml Q30M PRN IV Hypoglycemia 09/21/20 19:15 12/20/20 19:14 Dextrose (Dextrose 50%) 50 ml Q30M PRN IV Hypoglycemia 09/21/20 19:15 12/20/20 19:14 Heparin Sodium (Porcine) (Heparin 5000 units/ml) 5,000 units EVERY 12 HOURS SUBQ 09/21/20 21:00 11/05/20 20:59 09/21/20 21:12 Insulin Aspart (NovoLOG) BEFORE MEALS AND HS SUBQ 09/21/20 21:00 12/20/20 20:59 09/21/20 21:19 Lorazepam (Ativan 2mg/ml 1ml) 2 mg Q2H PRN IV For Anxiety 09/21/20 19:15 09/28/20 19:14 Ondansetron HCl (Zofran) 4 mg Q6H PRN IVP Nausea & Vomiting 09/21/20 19:15 10/21/20 19:14 Polyethylene Glycol (Miralax) 17 gm DAILYPRN PRN ORAL Constipation 09/21/20 19:15 10/21/20 19:14 Promethazine HCl/ Codeine (Phenergan with Codeine) 5 ml Q4H PRN ORAL For Cough 09/21/20 19:15 10/21/20 19:14 Tamsulosin HCl (Flomax) 0.4 mg DAILY ORAL 09/22/20 09:00 10/22/20 08:59 Vancomycin HCl (Vanco pharmacy to dose) 1 ea DAILY PRN MISC Per rx protocol 09/21/20 19:30 10/21/20 19:29 Vancomycin HCl 750 mg/Sodium Chloride 275 ml @ 183.333 mls/hr Q12H IVPB 09/22/20 09:00 09/27/20 08:59 Assessment/Plan Assessment/Plan: 75yo M with Febrile to 100.9 & hypothermic to 96s Leukopenia >> normal WBC Lymphopenia Possible pna 09/21 BCx p UA neg Resp cx p COVID rapid Ag neg, PCR p CXR: 1. Interstitial pulmonary edema with associated bilateral patchy airspace opacities which could represent alveolar edema but superimposed pneumonia should be excluded clinically. 2. Small bilateral pleural effusions with compressive atelectasis. Cr 1.1 Stomach CA Plan: Cont empiric cefepime/vanco IV #2 for now F/u BCx, Resp cx, COVID PCR Monitor CBC/CMP Monitor temp curve, hemodynamics Monitor resp status D/w RN Thank you for this consult. [facility] will continue to follow. Anna Ladd M.D. Sep 22, 2020 08:25
[2020-09-22] MEDS: Tamsulosin 0.4mg cap ORAL SCH (10:08)
[2020-09-22] MEDS: Cefepime HCl 2 GM in D5W 110 ML IV SCH (10:08)
[2020-09-22] MEDS: Heparin 5000 units/ml inj SUBQ SCH ×2 (10:10→22:06)
[2020-09-22] MEDS: Vancomycin 750mg/NS 275ml IVPB SCH ×4 (10:49→22:04)
[2020-09-22 12:00] VITALS: BP 110/56
--- NOTE | 2020-09-22 12:53 | Consultation ---
History of Present Illness General Date patient seen: Sep 22, 2020 Chief Complaint: Generalized Weakness Referring physician: PCP Reason for Consultation: Sepsis Present Illness HPI 75-year-old male with hx of DM, HTN, stomach cancer presented to ER from a clinic across the street with CC of shortness of breath. She was receiving infusion therapy when he started to feel short of breath. She has a cough which has been chronic for some time and some l ow-grade fever. Denies chest pain. No other aggravating relieving factors. Denies any other associated symptoms Allergies: Coded Allergies: No Known Allergies (Unverified , 10/23/19) Medication History Scheduled Atorvastatin Calcium* (Lipitor*), 10 MG ORAL BEDTIME, (Reported) Benazepril Hcl* (Benazepril Hcl*), 10 MG ORAL DAILY, (Reported) Benazepril Hcl* (Benazepril Hcl*), 10 MG ORAL DAILY, (Reported) Clotrimazole* (Lotrimin*), 1 APPLIC TOPIC TWICE A DAY, (Reported) Docusate Sodium* (Colace*), 100 MG ORAL DAILY, (Reported) Gabapentin* (Gabapentin*), 300 MG ORAL THREE TIMES A DAY, (Reported) Hydrochlorothiazide* (Hydrochlorothiazide*), 25 MG ORAL DAILY, (Reported) Hydrochlorothiazide* (Hydrochlorothiazide*), 25 MG ORAL DAILY, (Reported) Lansoprazole* (Lansoprazole*), 30 MG ORAL DAILY, (Reported) Loratadine (Claritin*), 10 MG PO DAILY, (Reported) Losartan Potassium* (Losartan Potassium*), 50 MG ORAL DAILY, (Reported) Metformin Hcl* (Metformin Hcl*), 1,000 MG ORAL DAILY, (Reported) Metformin Hcl* (Metformin Hcl*), 1,000 MG ORAL DAILY, (Reported) Prochlorperazine Maleate* (Compazine*), 10 MG ORAL Q6H, (Reported) Simvastatin (Zocor), 10 MG ORAL BEDTIME, (Reported) Tamsulosin HCl (Flomax), 0.4 MG ORAL DAILY, (Reported) Tamsulosin HCl (Flomax), 0.4 MG ORAL DAILY, (Reported) Miscellaneous Medications Calcium Carbonate/Vitamin D3 (Oysco 500+D Tablet), 1 EACH PO, (Reported) Filgrastim (Neupogen), 300 MCG IJ, (Reported) Patient History Healthcare decision maker Resuscitation status Advanced Directive on File Past Medical/Surgical History Past Medical/Surgical History: (1) History of hypertension (2) Diabetes mellitus (3) Gastric cancer Review of Systems All Other Systems: negative except mentioned in HPI Physical Exam General Appearance: WD/WN Lines, tubes and drains: peripheral HEENT: normocephalic, atraumatic Neck: non-tender, normal alignment Respiratory/Chest: chest wall non-tender, no respiratory distress Cardiovascular/Chest: normal peripheral pulses, normal rate Abdomen: normal bowel sounds, soft Genitourinary/Rectal: normal genital exam Last 24 Hour Vital Signs Date Time Temp Pulse Resp B/P (MAP) Pulse Ox O2 Delivery O2 Flow Rate FiO2 09/22/20 08:00 97.5 68 20 105/49 (67) 97 09/22/20 04:00 46 09/22/20 04:00 97.7 48 20 99/48 (65) 98 09/22/20 00:00 54 09/22/20 00:00 96.3 60 20 116/70 (85) 97 09/21/20 22:51 Nasal Cannula 2.0 09/21/20 21:38 96.3 09/21/20 20:40 98.9 76 22 122/84 100 Nasal Cannula 3.0 09/21/20 20:39 100.9 63 22 108/49 (68) 100 09/21/20 17:00 99.8 108 18 139/74 96 Nasal Cannula 3.0 09/21/20 16:33 99.9 09/21/20 15:00 111 26 Nasal Cannula 3.0 09/21/20 15:00 100.1 111 18 131/72 97 Nasal Cannula 3.0 09/21/20 14:51 100.0 125 18 137/75 (95) 96 Room Air Intake and Output 09/21/20 09/22/20 19:00 07:00 Output Total 500 ml Balance -500 ml Output Urine Total 500 ml # Voids 1 Laboratory Tests Test 09/21/20 15:05 09/21/20 16:15 09/21/20 16:25 09/21/20 20:49 White Blood Count 3.9 K/UL (4.8-10.8) L Red Blood Count 3.63 M/UL (4.70-6.10) L Hemoglobin 11.6 G/DL (14.2-18.0) L Hematocrit 34.7 % (42.0-52.0) L Mean Corpuscular Volume 96 FL (80-99) Mean Corpuscular Hemoglobin 32.0 PG (27.0-31.0) H Mean Corpuscular Hemoglobin Concent 33.4 G/DL (32.0-36.0) Red Cell Distribution Width 17.0 % (11.6-14.8) H Platelet Count 159 K/UL (150-450) Mean Platelet Volume 5.8 FL (6.5-10.1) L Neutrophils (%) (Auto) % (45.0-75.0) Lymphocytes (%) (Auto) % (20.0-45.0) Monocytes (%) (Auto) % (1.0-10.0) Eosinophils (%) (Auto) % (0.0-3.0) Basophils (%) (Auto) % (0.0-2.0) Differential Total Cells Counted 100 Neutrophils % (Manual) 75 % (45-75) Lymphocytes % (Manual) 9 % (20-45) L Monocytes % (Manual) 8 % (1-10) Eosinophils % (Manual) 0 % (0-3) Basophils % (Manual) 0 % (0-2) Band Neutrophils 8 % (0-8) Platelet Estimate Adequate Platelet Morphology Normal Polychromasia 1+ Anisocytosis 1+ Prothrombin Time 11.7 SEC (9.30-11.50) H Prothromb Time International Ratio 1.1 (0.9-1.1) Activated Partial Thromboplast Time 32 SEC (23-33) D-Dimer > 35.20 mg/L FEU Sodium Level 138 MMOL/L (136-145) Potassium Level 3.3 MMOL/L (3.5-5.1) L Chloride Level 105 MMOL/L (98-107) Carbon Dioxide Level 21 MMOL/L (21-32) Anion Gap 12 mmol/L (5-15) Blood Urea Nitrogen 16 mg/dL (7-18) Creatinine 0.9 MG/DL (0.55-1.30) Estimat Glomerular Filtration Rate > 60 mL/min (>60) Glucose Level 141 MG/DL (74-106) H Lactic Acid Level 3.70 mmol/L (0.4-2.0) H 3.60 mmol/L (0.66-2.22) H Calcium Level 7.1 MG/DL (8.5-10.1) L Total Bilirubin 1.1 MG/DL (0.2-1.0) H Direct Bilirubin 0.3 MG/DL (0.0-0.3) Aspartate Amino Transf (AST/SGOT) 63 U/L (15-37) H Alanine Aminotransferase (ALT/SGPT) 50 U/L (12-78) Alkaline Phosphatase 205 U/L (46-116) H Troponin I 0.012 ng/mL (0.000-0.056) Pro-B-Type Natriuretic Peptide 105 pg/mL (0-125) Total Protein 6.8 G/DL (6.4-8.2) Albumin 2.4 G/DL (3.4-5.0) L Globulin 4.4 g/dL Albumin/Globulin Ratio 0.5 (1.0-2.7) L Urine Color Yellow Urine Appearance Clear Urine pH 5 (4.5-8.0) Urine Specific [place] 1.015 (1.005-1.035) Urine Protein 3+ (NEGATIVE) H Urine Glucose (UA) Negative (NEGATIVE) Urine Ketones 1+ (NEGATIVE) H Urine Blood 2+ (NEGATIVE) H Urine Nitrite Negative (NEGATIVE) Urine Bilirubin Negative (NEGATIVE) Urine Urobilinogen 1 MG/DL (0.0-1.0) H Urine Leukocyte Esterase Negative (NEGATIVE) Urine RBC 0-2 /HPF (0 - 0) H Urine WBC 0-2 /HPF (0 - 0) Urine Squamous Epithelial Cells None /LPF (NONE/OCC) Urine Amorphous Sediment Few /LPF (NONE) H Urine Bacteria Few /HPF (NONE) Ferritin 1678 NG/ML (8-388) H Lactate Dehydrogenase 372 U/L (81-234) H C-Reactive Protein, Quantitative 5.6 mg/dL (0.00-0.90) H POC Whole Blood Glucose Pending Test 09/22/20 05:45 09/22/20 06:43 09/22/20 12:01 POC Whole Blood Glucose Pending 94 MG/DL (74-106) White Blood Count 7.9 K/UL (4.8-10.8) # Red Blood Count 3.14 M/UL (4.70-6.10) L Hemoglobin 10.1 G/DL (14.2-18.0) L Hematocrit 28.8 % (42.0-52.0) L Mean Corpuscular Volume 92 FL (80-99) Mean Corpuscular Hemoglobin 32.0 PG (27.0-31.0) H Mean Corpuscular Hemoglobin Concent 34.9 G/DL (32.0-36.0) Red Cell Distribution Width 17.0 % (11.6-14.8) H Platelet Count 165 K/UL (150-450) Mean Platelet Volume 6.1 FL (6.5-10.1) L Neutrophils (%) (Auto) 83.5 % (45.0-75.0) H Lymphocytes (%) (Auto) 2.8 % (20.0-45.0) L Monocytes (%) (Auto) 12.3 % (1.0-10.0) H Eosinophils (%) (Auto) 0.2 % (0.0-3.0) Basophils (%) (Auto) 1.1 % (0.0-2.0) Sodium Level 139 MMOL/L (136-145) Potassium Level 3.8 MMOL/L (3.5-5.1) Chloride Level 107 MMOL/L (98-107) Carbon Dioxide Level 23 MMOL/L (21-32) Anion Gap 9 mmol/L (5-15) Blood Urea Nitrogen 22 mg/dL (7-18) H Creatinine 1.1 MG/DL (0.55-1.30) Estimat Glomerular Filtration Rate > 60 mL/min (>60) Glucose Level 95 MG/DL (74-106) Calcium Level 7.4 MG/DL (8.5-10.1) L Phosphorus Level 3.1 MG/DL (2.5-4.9) Albumin 2.2 G/DL (3.4-5.0) L Microbiology Date/Time Source Procedure Growth Status 09/21/20 16:25 Nasopharynx SARS-CoV-2 RdRp Gene Assay - Final Complete Height (Feet): 5 Height (Inches): 4.00 Weight (Pounds): 140 Medications Current Medications Medications (Trade) Dose Ordered Sig/Kali Route PRN Reason Start Time Stop Time Status Last Admin Dose Admin Acetaminophen (Tylenol) 650 mg Q4H PRN ORAL Temp >100.5 09/21/20 19:15 10/21/20 19:14 09/21/20 21:08 Albuterol/ Ipratropium (Albuterol/ Ipratropium) 3 ml Q4H PRN HHN Shortness of Breath 09/21/20 19:15 09/26/20 19:14 Cefepime HCl 2 gm/ Dextrose 110 ml @ 220 mls/hr Q24H IV 09/22/20 09:00 09/29/20 08:59 09/22/20 10:08 Dextrose (Dextrose 50%) 25 ml Q30M PRN IV Hypoglycemia 09/21/20 19:15 12/20/20 19:14 Dextrose (Dextrose 50%) 50 ml Q30M PRN IV Hypoglycemia 09/21/20 19:15 12/20/20 19:14 Heparin Sodium (Porcine) (Heparin 5000 units/ml) 5,000 units EVERY 12 HOURS SUBQ 09/21/20 21:00 11/05/20 20:59 09/22/20 10:10 Insulin Aspart (NovoLOG) BEFORE MEALS AND HS SUBQ 09/21/20 21:00 12/20/20 20:59 09/21/20 21:19 Lorazepam (Ativan 2mg/ml 1ml) 2 mg Q2H PRN IV For Anxiety 09/21/20 19:15 09/28/20 19:14 Ondansetron HCl (Zofran) 4 mg Q6H PRN IVP Nausea & Vomiting 09/21/20 19:15 10/21/20 19:14 Pantoprazole (Protonix) 40 mg DAILY ORAL 09/23/20 09:00 10/23/20 08:59 Polyethylene Glycol (Miralax) 17 gm DAILYPRN PRN ORAL Constipation 09/21/20 19:15 10/21/20 19:14 Promethazine HCl/ Codeine (Phenergan with Codeine) 5 ml Q4H PRN ORAL For Cough 09/21/20 19:15 10/21/20 19:14 Tamsulosin HCl (Flomax) 0.4 mg DAILY ORAL 09/22/20 09:00 10/22/20 08:59 09/22/20 10:08 Vancomycin HCl (Vanco pharmacy to dose) 1 ea DAILY PRN MISC Per rx protocol 09/21/20 19:30 10/21/20 19:29 Vancomycin HCl 750 mg/Sodium Chloride 275 ml @ 183.333 mls/hr Q12H IVPB 09/22/20 09:00 09/27/20 08:59 09/22/20 10:49 Assessment/Plan Problem List: (1) Interstitial pneumonia ICD Codes: J84.9 - Interstitial pulmonary disease, unspecified SNOMED: 48484237 (2) Acute respiratory failure ICD Codes: J96.00 - Acute respiratory failure, unspecified whether with hypoxia or hypercapnia SNOMED: 47971849 (3) Episode of generalized weakness ICD Codes: R53.1 - Weakness SNOMED: 58491883 (4) Gastric cancer ICD Codes: C16.9 - Malignant neoplasm of stomach, unspecified SNOMED: 997768665 (5) Diabetes mellitus ICD Codes: E11.9 - Type 2 diabetes mellitus without complications SNOMED: 43309475 (6) History of hypertension ICD Codes: Z86.79 - Personal history of other diseases of the circulatory system SNOMED: 013456313 Assessment/Plan: check sputum for C/s and Covid again BNP in negative. check echo CT of chest to rule out PE ID evaluation sliding scale Dakota Prieto MD Sep 22, 2020 12:53
--- NOTE | 2020-09-22 13:13 | NUR ---
NURSE NOTES: Roselia from lab said not to do covid PCR test ordered today by Dr Prieto since previous PCR was just sent out. Dr Prieto made aware, with orders to DC PCR order given today.
--- NOTE | 2020-09-22 13:45 | Consultation ---
DATE OF CONSULTATION: 09/22/2020 GASTROENTEROLOGY CONSULTATION CONSULTING PHYSICIAN: Michael Owen MD. CHIEF COMPLAINT: Fatigue, weakness, low-grade fever. HISTORY OF PRESENT ILLNESS: This is a pleasant unfortunate 75-year-old male who was getting chemotherapy for metastatic gastric CA and then he felt that he is weak and he had some low-grade fever, was sent to the hospital for evaluation. PAST MEDICAL HISTORY: Significant for, 1. History of gastric cancer. 2. Diabetes. 3. Hypertension. 4. Hypercholesterolemia. 5. Constipation. 6. GERD. 7. BPH. ALLERGIES: No known drug allergies. MEDICATIONS: Please see medication reconciliation list. SOCIAL HISTORY: The patient denies any tobacco, alcohol, or drug abuse. FAMILY HISTORY: Noncontributory. REVIEW OF SYSTEMS: A 10-point review of systems was performed and pertinent positives in HPI. PHYSICAL EXAMINATION: VITAL SIGNS: Temperature 97.5, pulse 68, respirations 20, blood pressure . HEENT: Normocephalic and atraumatic. Sclerae are anicteric. NECK: Supple. No evidence of obvious lymphadenopathy. CARDIOVASCULAR: Regular rate and rhythm. Plus S1, S2. LUNGS: Decreased breath sounds bilaterally based on supine exam. ABDOMEN: Soft, nontender. No rebound. No guarding. No peritoneal sign. EXTREMITIES: No cyanosis, no clubbing, no edema. LABORATORY DATA: White count 7.9, hemoglobin 10, hematocrit 28, platelet count is 165,000. Chem 7, grossly normal. Liver function - AST is 63, ALT of 50, alkaline phosphatase is 205. IMAGING STUDY: The patient had a chest x-ray, which showed interstitial pulmonary edema with associated bilateral patchy airspaces, which could represent alveolar edema, but superimposed pneumonia should be excluded clinically. Small bilateral pleural effusion with compressive atelectasis. ASSESSMENT AND PLAN: This is a 75-year-old male with history of gastric cancer on chemotherapy, admitted to the hospital with weakness, fever, possible pneumonia. GI symptoms at this time is not significant. He is able to eat. Denies any nausea, vomiting, dysphagia, or odynophagia. Denies any melena or hematochezia. He is anemic, most probably from combination of the chemo and also gastric CA. Plan to follow with Oncology recommendation. IV fluids for hydration. Pain management. Follow ID for antibiotics for possible pneumonia. Monitor labs. Continue on PPI and laxatives. Michael Owen M.D. DR: PRABHA JOB#: [id number] CC:
--- NOTE | 2020-09-22 15:26 | NUR ---
CASE MANAGEMENT:REVIEW ' BIBA FROM DR YBARRA'S OFFICE CC; WEAKNESS AND SOB SI: PNA. SEPSIS 100.0 125 18 137/75 96% ON RA WBC-3.9 K-3.3 LACTIC ACID+3.70 IS: 500CC NS BOLUS TYLENOL PO IV ROCEPHIN IV AZITHROMYCIN 1L NS BOLUS X2 : TO TELEMETRY
--- NOTE | 2020-09-22 15:27 | Consultation ---
Consult Note Consult Note I am asked to evaluate the patient at the request of Dr. Martínez for fluid and electrolyte management Patient seen and examined Labs reviewed Consultants notes reviewed Full note to follow 75-year-old male presents for shortness of breath. Brought in by EMS from clinic across the street. Was receiving infusion therapy when he started to feel short of breath. History of stomach cancer. Noted to have a cough which has been chronic for some time. Low-grade fever. Denies chest pain. No other aggravating relieving factors. Denies any other associated symptoms Allergies: No Known Allergies (Unverified , 10/23/19) COVID-19 Screening Contact w/high risk pt: No Experienced COVID-19 symptoms?: No COVID-19 Testing performed GOL[employer]MER: No Past Medical History: DM, HTN, other - stomach ca Past Surgical History: none Pertinent Family History: none Social History: Denies: smoking, alcohol use, drug use Immunizations: UTD Reviewed Nursing Documentation: PMH: Agreed; PSxH: Agreed Hx Cardiac Problems: Yes Hx Hypertension: Yes Hx Diabetes: Yes Hx Cancer: Yes - STOMACH CA Hx Gastrointestinal Problems: Yes - gastric CA Vital Signs ER Date Time Temp Pulse Resp B/P (MAP) Pulse Ox O2 Delivery O2 Flow Rate FiO2 09/21/20 14:51 100.0 125 18 137/75 (95) 96 Room Air 09/21/20 15:00 3.0 PHYSICAL EXAMINATION: VITAL SIGNS: Temperature 97.5, pulse 68, respirations 20, blood pressure 137/75. HEENT: Normocephalic and atraumatic. Sclerae are anicteric. NECK: Supple. No evidence of obvious lymphadenopathy. CARDIOVASCULAR: Regular rate and rhythm. Plus S1, S2. LUNGS: Decreased breath sounds bilaterally based on supine exam. ABDOMEN: Soft, nontender. No rebound. No guarding. No peritoneal sign. EXTREMITIES: No cyanosis, no clubbing, no edema. LABORATORY DATA: White count 7.9, hemoglobin 10, hematocrit 28, platelet count is 165,000. Chem 7, grossly normal. Liver function - AST is 63, ALT of 50, alkaline phosphatase is 205. IMAGING STUDY: The patient had a chest x-ray, which showed interstitial pulmonary edema with associated bilateral patchy airspaces, which could represent alveolar edema, but superimposed pneumonia should be excluded clinically. Small bilateral pleural effusion with compressive atelectasis. . Assessment/Plan Electrolyte imbalance 3+ proteinuria Diabetes mellitus Hypertension History of gastric cancer BPH Anemia Febrile, leukopenia, lymphopenia Chest x-ray: Alveolar edema/superimposed pneumonia/small bilateral pleural effusion Per consultants Monitor renal parameters and electrolytes Monitor urine output Keep the blood pressure over 95 systolic Hydrate as needed Anemia work-up Further comments after the labs results and urine studies Real Altman MD Sep 22, 2020 15:27
[2020-09-22 16:00] VITALS: BP 115/52
--- NOTE | 2020-09-22 16:25 | Diagnostic Imaging Report ---
EXAM: ULTRASOUND Venous Duplex Scan Conner Leg CLINICAL HISTORY: Leg pain and edema. Shortness of breath.. COMPARISON: None TECHNIQUE: Doppler examination include grayscale images obtained with and without compression, and color and spectral doppler analysis. FINDINGS: Doppler examination shows normal spontaneity, phasicity, compressibility in the bilateral lower extremities. There is no thrombus identified by grayscale. Normal color and spectral flow is identified. There is no evidence of valvular incompetency or insufficiency. IMPRESSION: UNREMARKABLE VENOUS DUPLEX.
--- NOTE | 2020-09-22 16:37 | Diagnostic Imaging Report ---
EXAM: CT CTA Chest w Contrast CLINICAL HISTORY: Dyspnea. TECHNIQUE: CT angiogram of the pulmonary vasculature performed with IV contrast. 2-D and 3-D reformat images obtained. All CT scans at this facility are performed using dose modulation techniques as appropriate to a performed exam including the following: automated exposure control with adjustment of the mA and/or kV according to patient size. RADIATION DOSE: CTDIvol: 22.6 mGy DLP: 188.8 mGy-cm Dose information generated by the CT scanner is available in PACS. COMPARISON: None FINDINGS: Studies limited by significant respiratory motion artifacts. There appears to be good opacification of the pulmonary vasculature noted There is no central filling defects or thrombus identified. Peripheral subsegmental branches are grossly unremarkable to the extent visualized. The aorta is normal in caliber and there is no intimal flap or dissection. There is no mediastinal mass or adenopathy. Multifocal bilateral infiltrates noted. There is some mild central bronchiectasis. A tiny amount of free fluid noted adjacent to the liver in the right upper quadrant. There is no acute osseous abnormality noted. IMPRESSION: STUDY LIMITED BY RESPIRATORY MOTION ARTIFACT. NO EVIDENCE OF PULMONARY EMBOLISM TO THE EXTENT VISUALIZED. BILATERAL MULTIFOCAL INFILTRATES.
--- NOTE | 2020-09-22 17:35 | History & Physical ---
History and Physical History & Physicial Dictated for Int Med-DR Martínez no. [id number] Familia Mak MD Sep 22, 2020 17:35
--- NOTE | 2020-09-22 18:30 | History and Physical Report ---
DATE OF ADMISSION: 09/21/2020 CHIEF COMPLAINT: The patient is a 75-year-old male with history of gastric cancer, who presents with chief complaint of shortness of breath. HISTORY OF PRESENT ILLNESS: The patient was diagnosed with gastric cancer in October of 2019. The patient is currently undergoing chemotherapy with Dr. Lucy Fontaine every two weeks. The patient was at Dr. Fontaine's office on September 21, 2020. The patient became short of breath. EMS was called. The patient was evaluated in [place] emergency room. A chest x-ray revealed bilateral pneumonia. The patient is admitted with shortness of breath and bilateral pneumonia to rule out COVID-19 pneumonia. REVIEW OF SYSTEMS: CONSTITUTIONAL: The patient denies weight loss or weight gain. The patient denies fever or chills. HEENT: The patient denies ear or throat pain. The patient denies headache. CARDIOVASCULAR: The patient denies palpitations or chest pain. CHEST: The patient complains of shortness of breath as above. The patient denies wheezes. ABDOMEN: The patient denies nausea, vomiting, diarrhea, or constipation. GENITOURINARY: The patient denies dysuria or increased frequency of urination. NEUROMUSCULAR: The patient denies seizures or generalized weakness. PAST MEDICAL HISTORY: Significant for: 1. Gastric cancer with metastasis. 2. Diabetes type 2. 3. Hypertension. PAST SURGICAL HISTORY: Significant for right knee surgery. CURRENT MEDICATIONS: 1. Claritin 10 mg one tablet p.o. daily. 2. Guaifenesin with codeine one teaspoon p.o. every 6 hours p.r.n. 3. Imodium 2 mg p.o. every 4 hours p.r.n. 4. Protonix . 5. Prevacid 30 mg p.o. daily. 6. Ondansetron 8 mg p.o. every 6 hours p.r.n. nausea and vomiting. 7. Oxaliplatin 150 mg intravenously every other week. 8. Calcium carbonate 500 mg p.o. daily. 9. Compazine 10 mg p.o. four times a day p.r.n. ALLERGIES: No known drug allergies. SOCIAL HISTORY: The patient is single and lives with his adult son. The patient denies tobacco or alcohol use. PHYSICAL EXAMINATION: VITAL SIGNS: Temperature 100 degrees Fahrenheit, respirations 18, pulse 125, blood pressure 137/75. GENERAL: The patient is a well-developed and well-nourished male, in no apparent distress. HEENT: Eyes, pupils are equal and responsive to light and accommodation. Extraocular movements are intact. NECK: Supple without lymphadenopathy. CHEST: Decreased breath sounds bilateral bases with expiratory wheezes, otherwise without wheezes or rales. CARDIOVASCULAR: Tachycardic, regular rhythm and rate. S1, S2 normal without murmurs, rubs, or gallops. ABDOMEN: Soft, nontender, and nondistended. Positive bowel sounds. No evidence of hepatosplenomegaly. Currently, no rebound or guarding noted. EXTREMITIES: Negative for clubbing, cyanosis, or edema. RECTAL/GENITAL: Not performed. NEUROLOGIC: Cranial nerves II through XII grossly intact without focal deficits. Motor strength is 5/5 bilaterally. Deep tendon reflexes are 2+ plantars. LABORATORY STUDIES: WBC 3.9, hemoglobin 11.6, hematocrit 34.7, platelets 159,000. Sodium 138, potassium 3.3, chloride 105, CO2 21, BUN 16, creatinine 0.9. Glucose 141. AST elevated at 63, total bilirubin elevated at 1.1, alkaline phosphatase elevated at 205. Troponin is 0.012. Chest x-ray revealed multiple bilateral patchy airspace opacities consistent with pneumonia. ASSESSMENT: This is a 75-year-old male with: 1. Pneumonia. 2. Dyspnea. 3. Gastric cancer with metastasis. 4. Hypertension. 5. Diabetes. TREATMENT: 1. Pneumonia. An Infectious Disease consultation has been obtained with Dr. Hope. The patient has been started empirically on vancomycin and cefepime. Await sputum cultures. 2. Dyspnea. This probably secondary to pneumonia as above. A COVID-19 swab is pending. 3. Gastric cancer. The patient is followed as an outpatient by Dr. Lucy Fontaine. 4. Hypertension. The patient is currently hypotensive. 5. Diabetes type 2. The patient's glucose is currently within normal limits. Familia Mak M.D. DR: LESLY JOB#: [id number] CC:
--- NOTE | 2020-09-22 19:14 | NUR ---
NURSE HAND-OFF REPORT: Important Events on Shift:cta chest done, negative for PE. Venous duplex done, negative. Patient Status: alert, pleasant Diet: ccho medium Pending Orders: Pending Results/Labs: Pending MD notification: Latest Vital Signs: Temperature 98.9 , Pulse 64 , B/P 115 /52 , Respiratory Rate 20 , O2 SAT 95 , Room Air, O2 Flow Rate 2.0 . Vital Sign Comment: EKG Rhythm: Sinus Rhythm Rhythm change?: N MD Notified?: N - MD Response: Latest Turner Fall Score: 15 Fall Risk: Low Risk Safety Measures: Call light Within Reach, Bed Alarm , Side Rails Side Rails x2, Bed position Low and Locked. Fall Precautions: Door Sign Patient Fall Education Report given to nia OLMOS.
[2020-09-22 20:00] VITALS: BP 110/58
[2020-09-23] VITALS: BP 122/56
--- NOTE | 2020-09-23 00:31 | NUR ---
NURSE NOTES: Received pt from Anamaria, RN. Pt awake, alert, and talkative. Bed in lowest position. Call light within reach. Will continue to monitor.
[2020-09-23] MEDS: NovoLOG Insulin Flexpen SUBQ SCH ×4 (06:30→21:00)
--- NOTE | 2020-09-23 06:36 | General Progress Note ---
Subjective ROS Limited/Unobtainable: Yes Allergies: Coded Allergies: No Known Allergies (Unverified , 10/23/19) Objective Last 24 Hour Vital Signs Date Time Temp Pulse Resp B/P (MAP) Pulse Ox O2 Delivery O2 Flow Rate FiO2 09/23/20 00:00 67 09/23/20 00:00 98.8 58 18 122/56 (78) 95 09/22/20 21:00 Room Air 09/22/20 20:00 98.8 65 18 110/58 (75) 95 09/22/20 20:00 52 09/22/20 16:00 64 09/22/20 16:00 98.9 68 20 115/52 (73) 95 09/22/20 12:00 97.3 55 22 110/56 (74) 96 09/22/20 12:00 61 09/22/20 09:00 Room Air 09/22/20 08:00 76 09/22/20 08:00 97.5 68 20 105/49 (67) 97 Intake and Output 09/22/20 09/23/20 19:00 07:00 Intake Total 360 ml Output Total 450 ml Balance -90 ml Intake Oral 360 ml Output Urine Total 450 ml # Voids 1 Laboratory Tests 09/22/20 06:43: White Blood Count 7.9#, Red Blood Count 3.14L, Hemoglobin 10.1L, Hematocrit 28.8L, Mean Corpuscular Volume 92, Mean Corpuscular Hemoglobin 32.0H, Mean Corpuscular Hemoglobin Concent 34.9, Red Cell Distribution Width 17.0H, Platelet Count 165, Mean Platelet Volume 6.1L, Neutrophils (%) (Auto) 83.5H, Lymphocytes (%) (Auto) 2.8L, Monocytes (%) (Auto) 12.3H, Eosinophils (%) (Auto) 0.2, Basophils (%) (Auto) 1.1, Sodium Level 139, Potassium Level 3.8, Chloride Level 107, Carbon Dioxide Level 23, Anion Gap 9, Blood Urea Nitrogen 22H, Creatinine 1.1, Estimat Glomerular Filtration Rate > 60, Glucose Level 95, Calcium Level 7.4L, Phosphorus Level 3.1, Albumin 2.2L 09/22/20 12:01: POC Whole Blood Glucose 94 09/22/20 16:49: POC Whole Blood Glucose 114H 09/22/20 22:16: POC Whole Blood Glucose [Pending] Height (Feet): 5 Height (Inches): 4.00 Weight (Pounds): 140 General Appearance: no apparent distress EENT: normal ENT inspection Neck: supple Cardiovascular: normal rate Respiratory/Chest: decreased breath sounds Abdomen: normal bowel sounds, non tender, soft Extremities: non-tender Assessment/Plan Assessment/Plan: 1. History of gastric cancer. 2. Diabetes. 3. Hypertension. 4. Hypercholesterolemia. 5. Constipation. 6. GERD. 7. BPH. fu H&H monitor po intake fu oncology recs DM control will fu Michael Owen MD Sep 23, 2020 06:36
--- NOTE | 2020-09-23 07:25 | NUR ---
NURSE NOTES: Report received from Genoveva OLMOS. Patient is observed in bed, awake, alert, oriented, and able to make needs known. Respiratory even and unlabored. IV site is asymptomatic, patent, and intact. Bed is in lowest position with side rails up x2 and brakes are engaged. Bed alarm is on. Encouraged patient to use call light when in need of assistance, pt verbalized understanding. Will continue to monitor.
[2020-09-23 08:00] VITALS: BP 151/86
--- NOTE | 2020-09-23 08:21 | NUR ---
NURSE NOTES: Notified Dr. Martínez regarding port-a-cath has been accessed since admission, per eliana MOSQUEDA to use port-a-cath. Will carry out order.
--- NOTE | 2020-09-23 08:23 | Infectious Diseases Prog Note ---
Assessment/Plan 75yo M with Febrile to 100.9 & hypothermic to 96s Leukopenia >> normal WBC Lymphopenia Multifocal BL pneumonia 09/21 BCx NTD UA neg Resp cx p COVID rapid Ag neg, PCR p CXR: 1. Interstitial pulmonary edema with associated bilateral patchy airspace opacities which could represent alveolar edema but superimposed pneumonia should be excluded clinically. 2. Small bilateral pleural effusions with compressive atelectasis. 09/22 CTA chest: No PE. Multifocal bilateral infiltrates noted. There is some mild central bronchiectasis. Cr 1.1 Stomach CA Plan: Cont empiric cefepime/vanco IV #3 for now Will need course of abx for pna, f/u resp cx, COVID PCR first F/u BCx, Resp cx, COVID PCR Monitor CBC/CMP Monitor temp curve, hemodynamics Monitor resp status D/w RN Thank you for this consult. [facility] will continue to follow. Subjective Allergies: Coded Allergies: No Known Allergies (Unverified , 10/23/19) AF On RA NAD WBC 7.9 Feeling well other than being in the hospital, though still w/ some cough Walking around a little Objective Last 24 Hour Vital Signs Date Time Temp Pulse Resp B/P (MAP) Pulse Ox O2 Delivery O2 Flow Rate FiO2 09/23/20 08:00 98.6 96 18 151/86 (107) 95 09/23/20 04:00 55 09/23/20 00:00 67 09/23/20 00:00 98.8 58 18 122/56 (78) 95 09/22/20 21:00 Room Air 09/22/20 20:00 98.8 65 18 110/58 (75) 95 09/22/20 20:00 52 09/22/20 16:00 64 09/22/20 16:00 98.9 68 20 115/52 (73) 95 09/22/20 12:00 97.3 55 22 110/56 (74) 96 09/22/20 12:00 61 09/22/20 09:00 Room Air Height (Feet): 5 Height (Inches): 4.00 Weight (Pounds): 140 Gen: NAD HEENT: NCAT Pulm: BL chest rise Abd: Non-distended Ext: No c/c/e Skin: No visible rashes Neuro: Awake Microbiology Date/Time Source Procedure Growth Status 09/22/20 00:00 Sputum Gram Stain - Final Resulted 09/22/20 00:00 Sputum Sputum Culture Pending Resulted 09/21/20 16:25 Nasopharynx SARS-CoV-2 RdRp Gene Assay - Final Complete 09/21/20 15:25 Blood Blood Culture - Preliminary NO GROWTH AFTER 24 HOURS Resulted 09/21/20 15:05 Blood Blood Culture - Preliminary NO GROWTH AFTER 24 HOURS Resulted Laboratory Tests Test 09/22/20 12:01 09/22/20 16:49 09/22/20 22:16 09/23/20 07:10 POC Whole Blood Glucose 94 MG/DL (74-106) 114 MG/DL (74-106) H Pending Pending Current Medications Medications (Trade) Dose Ordered Sig/Kali Route PRN Reason Start Time Stop Time Status Last Admin Dose Admin Acetaminophen (Tylenol) 650 mg Q4H PRN ORAL Temp >100.5 09/21/20 19:15 10/21/20 19:14 09/21/20 21:08 Albuterol/ Ipratropium (Albuterol/ Ipratropium) 3 ml Q4H PRN HHN Shortness of Breath 09/21/20 19:15 09/26/20 19:14 Cefepime HCl 2 gm/ Dextrose 110 ml @ 220 mls/hr Q24H IV 09/22/20 09:00 09/29/20 08:59 09/22/20 10:08 Dextrose (Dextrose 50%) 25 ml Q30M PRN IV Hypoglycemia 09/21/20 19:15 12/20/20 19:14 Dextrose (Dextrose 50%) 50 ml Q30M PRN IV Hypoglycemia 09/21/20 19:15 12/20/20 19:14 Heparin Sodium (Porcine) (Heparin 5000 units/ml) 5,000 units EVERY 12 HOURS SUBQ 09/21/20 21:00 11/05/20 20:59 09/22/20 22:06 Insulin Aspart (NovoLOG) BEFORE MEALS AND HS SUBQ 09/21/20 21:00 12/20/20 20:59 09/21/20 21:19 Lorazepam (Ativan 2mg/ml 1ml) 2 mg Q2H PRN IV For Anxiety 09/21/20 19:15 09/28/20 19:14 Ondansetron HCl (Zofran) 4 mg Q6H PRN IVP Nausea & Vomiting 09/21/20 19:15 10/21/20 19:14 Pantoprazole (Protonix) 40 mg DAILY ORAL 09/23/20 09:00 10/23/20 08:59 Polyethylene Glycol (Miralax) 17 gm DAILYPRN PRN ORAL Constipation 09/21/20 19:15 10/21/20 19:14 Promethazine HCl/ Codeine (Phenergan with Codeine) 5 ml Q4H PRN ORAL For Cough 09/21/20 19:15 10/21/20 19:14 Tamsulosin HCl (Flomax) 0.4 mg DAILY ORAL 09/22/20 09:00 10/22/20 08:59 09/22/20 10:08 Vancomycin HCl (Vanco pharmacy to dose) 1 ea DAILY PRN MISC Per rx protocol 09/21/20 19:30 10/21/20 19:29 Vancomycin HCl 750 mg/Sodium Chloride 275 ml @ 183.333 mls/hr Q12H IVPB 09/22/20 09:00 09/27/20 08:59 09/22/20 22:04 Anna Ladd M.D. Sep 23, 2020 08:23
[2020-09-23] MEDS: Vancomycin 750mg/NS 275ml IVPB SCH ×2 (09:08)
[2020-09-23] MEDS: Tamsulosin 0.4mg cap ORAL SCH (09:09)
[2020-09-23] MEDS: Heparin 5000 units/ml inj SUBQ SCH ×2 (09:09→21:39)
[2020-09-23] MEDS: Cefepime HCl 2 GM in D5W 110 ML IV SCH (09:12)
[2020-09-23 10:32] LABS: BASOPHILS % (AUTO) 1.2 % (0.0-2.0); EOSINOPHILS % (AUTO) 1.4 % (0.0-3.0); HEMOGLOBIN 10.2 G/DL (14.2-18.0); LYMPHOCYTES % (AUTO) 9.7 % (20.0-45.0); MEAN CORPUSCULAR VOLUME 93 FL (80-99); MONOCYTES % (AUTO) 11.9 % (1.0-10.0); NEUTROPHILS % (AUTO) 75.9 % (45.0-75.0); PLATELET COUNT 143 K/UL (150-450); RED BLOOD COUNT 3.22 M/UL (4.70-6.10); RED CELL DISTRIBUTION WIDTH 17.4 % (11.6-14.8); WHITE BLOOD COUNT 7.2 K/UL (4.8-10.8)
[2020-09-23 11:10] LABS: ALANINE AMINOTRANSFERASE 47 U/L (12-78); ALBUMIN 2.2 G/DL (3.4-5.0); ALBUMIN/GLOBULIN RATIO 0.5 (1.0-2.7); ALKALINE PHOSPHATASE 183 U/L (46-116); ANION GAP 8 mmol/L (5-15); ASPARTATE AMINO TRANSFERASE 53 U/L (15-37); BILIRUBIN,TOTAL 0.3 MG/DL (0.2-1.0); BLOOD UREA NITROGEN 14 mg/dL (7-18); CALCIUM 7.5 MG/DL (8.5-10.1); CARBON DIOXIDE 22 MMOL/L (21-32); CHLORIDE 107 MMOL/L (98-107); CHOLESTEROL 132 MG/DL (< 200); CREATININE 0.9 MG/DL (0.55-1.30); FERRITIN 965 NG/ML (8-388); GAMMA GLUTAMYL TRANSPEPTIDASE 91 U/L (5-85); HDL CHOLESTEROL 44 MG/DL (40-60); LACTATE DEHYDROGENASE 268 U/L (81-234); PHOSPHORUS 2.4 MG/DL (2.5-4.9); POTASSIUM 3.3 MMOL/L (3.5-5.1); SODIUM 137 MMOL/L (136-145); TRIGLYCERIDES 139 MG/DL (30-150)
[2020-09-23 11:28] LABS: % IRON SATURATION 29 % (15-50); IRON 61 ug/dL (50-175); TOTAL IRON BINDING CAPACITY 214 ug/dL (250-450)
[2020-09-23 12:00] VITALS: BP 130/68
--- NOTE | 2020-09-23 12:07 | Internal Med Progress Note ---
Subjective Date of Service: Sep 23, 2020 Physician Name MakFamilia Attending Physician Hung Martínez MD Current Medications Medications (Trade) Dose Ordered Sig/Kali Route PRN Reason Start Time Stop Time Status Last Admin Dose Admin Acetaminophen (Tylenol) 650 mg Q4H PRN ORAL Temp >100.5 09/21/20 19:15 10/21/20 19:14 09/21/20 21:08 Albuterol/ Ipratropium (Albuterol/ Ipratropium) 3 ml Q4H PRN HHN Shortness of Breath 09/21/20 19:15 09/26/20 19:14 Cefepime HCl 2 gm/ Dextrose 110 ml @ 220 mls/hr Q24H IV 09/22/20 09:00 09/29/20 08:59 09/23/20 09:12 Dextrose (Dextrose 50%) 25 ml Q30M PRN IV Hypoglycemia 09/21/20 19:15 12/20/20 19:14 Dextrose (Dextrose 50%) 50 ml Q30M PRN IV Hypoglycemia 09/21/20 19:15 12/20/20 19:14 Heparin Sodium (Porcine) (Heparin 5000 units/ml) 5,000 units EVERY 12 HOURS SUBQ 09/21/20 21:00 11/05/20 20:59 09/23/20 09:09 Insulin Aspart (NovoLOG) BEFORE MEALS AND HS SUBQ 09/21/20 21:00 12/20/20 20:59 09/21/20 21:19 Lorazepam (Ativan 2mg/ml 1ml) 2 mg Q2H PRN IV For Anxiety 09/21/20 19:15 09/28/20 19:14 Ondansetron HCl (Zofran) 4 mg Q6H PRN IVP Nausea & Vomiting 09/21/20 19:15 10/21/20 19:14 Pantoprazole (Protonix) 40 mg DAILY ORAL 09/23/20 09:00 10/23/20 08:59 09/23/20 09:08 Polyethylene Glycol (Miralax) 17 gm DAILYPRN PRN ORAL Constipation 09/21/20 19:15 10/21/20 19:14 Promethazine HCl/ Codeine (Phenergan with Codeine) 5 ml Q4H PRN ORAL For Cough 09/21/20 19:15 10/21/20 19:14 Tamsulosin HCl (Flomax) 0.4 mg DAILY ORAL 09/22/20 09:00 10/22/20 08:59 09/23/20 09:09 Vancomycin HCl (Vanco pharmacy to dose) 1 ea DAILY PRN MISC Per rx protocol 09/21/20 19:30 10/21/20 19:29 Vancomycin HCl 750 mg/Sodium Chloride 275 ml @ 183.333 mls/hr Q12H IVPB 09/22/20 09:00 09/27/20 08:59 09/23/20 09:08 Allergies: Coded Allergies: No Known Allergies (Unverified , 10/23/19) ROS Limited/Unobtainable: No Constitutional: Reports: no symptoms HEENT: Reports: no symptoms Cardiovascular: Reports: no symptoms Respiratory: Reports: cough, shortness of breath Gastrointestinal/Abdominal: Reports: no symptoms Genitourinary: Reports: no symptoms Neurologic/Psychiatric: Reports: no symptoms Subjective 75 YO M admitted with shortness of breath. Now pneumonia. Cover for Int Tj-Dr Martínez Objective Last Vital Signs Date Time Temp Pulse Resp B/P (MAP) Pulse Ox O2 Delivery O2 Flow Rate FiO2 09/23/20 09:00 Room Air 09/23/20 08:00 98.6 96 18 151/86 (107) 95 09/21/20 22:51 2.0 Laboratory Tests Test 09/22/20 16:49 09/22/20 22:16 09/23/20 07:10 09/23/20 09:10 POC Whole Blood Glucose 114 MG/DL (74-106) H Pending Pending White Blood Count 7.2 K/UL (4.8-10.8) Red Blood Count 3.22 M/UL (4.70-6.10) L Hemoglobin 10.2 G/DL (14.2-18.0) L Hematocrit 30.0 % (42.0-52.0) L Mean Corpuscular Volume 93 FL (80-99) Mean Corpuscular Hemoglobin 31.6 PG (27.0-31.0) H Mean Corpuscular Hemoglobin Concent 33.9 G/DL (32.0-36.0) Red Cell Distribution Width 17.4 % (11.6-14.8) H Platelet Count 143 K/UL (150-450) L Mean Platelet Volume 5.4 FL (6.5-10.1) L Neutrophils (%) (Auto) 75.9 % (45.0-75.0) H Lymphocytes (%) (Auto) 9.7 % (20.0-45.0) L Monocytes (%) (Auto) 11.9 % (1.0-10.0) H Eosinophils (%) (Auto) 1.4 % (0.0-3.0) Basophils (%) (Auto) 1.2 % (0.0-2.0) Sodium Level 137 MMOL/L (136-145) Potassium Level 3.3 MMOL/L (3.5-5.1) L Chloride Level 107 MMOL/L (98-107) Carbon Dioxide Level 22 MMOL/L (21-32) Anion Gap 8 mmol/L (5-15) Blood Urea Nitrogen 14 mg/dL (7-18) Creatinine 0.9 MG/DL (0.55-1.30) Estimat Glomerular Filtration Rate > 60 mL/min (>60) Glucose Level 130 MG/DL (74-106) H Hemoglobin A1c Pending Uric Acid 3.1 MG/DL (2.6-7.2) Calcium Level 7.5 MG/DL (8.5-10.1) L Phosphorus Level 2.4 MG/DL (2.5-4.9) L Magnesium Level 1.5 MG/DL (1.8-2.4) L Iron Level 61 ug/dL (50-175) Total Iron Binding Capacity 214 ug/dL (250-450) L Percent Iron Saturation 29 % (15-50) Unsaturated Iron Binding 153 ug/dL (112-346) Ferritin 965 NG/ML (8-388) H Total Bilirubin 0.3 MG/DL (0.2-1.0) Gamma Glutamyl Transpeptidase 91 U/L (5-85) H Aspartate Amino Transf (AST/SGOT) 53 U/L (15-37) H Alanine Aminotransferase (ALT/SGPT) 47 U/L (12-78) Alkaline Phosphatase 183 U/L (46-116) H Lactate Dehydrogenase 268 U/L (81-234) H C-Reactive Protein, Quantitative 10.5 mg/dL (0.00-0.90) H Pro-B-Type Natriuretic Peptide 2478 pg/mL (0-125) H Total Protein 6.5 G/DL (6.4-8.2) Albumin 2.2 G/DL (3.4-5.0) L Globulin 4.3 g/dL Albumin/Globulin Ratio 0.5 (1.0-2.7) L Triglycerides Level 139 MG/DL (30-150) Cholesterol Level 132 MG/DL (< 200) LDL Cholesterol 61 mg/dL (<100) HDL Cholesterol 44 MG/DL (40-60) Cholesterol/HDL Ratio 3.0 (3.3-4.4) L Vitamin B12 Level Pending Folate Pending Thyroid Stimulating Hormone (TSH) 2.060 uiU/mL (0.358-3.740) Vancomycin Level Trough 13.0 ug/mL (5.0-12.0) H Test 09/23/20 11:44 POC Whole Blood Glucose 111 MG/DL (74-106) H Microbiology Date/Time Source Procedure Growth Status 09/22/20 00:00 Sputum Gram Stain - Final Resulted 09/22/20 00:00 Sputum Sputum Culture Pending Resulted 09/21/20 16:25 Nasopharynx SARS-CoV-2 RdRp Gene Assay - Final Complete 09/21/20 15:25 Blood Blood Culture - Preliminary NO GROWTH AFTER 24 HOURS Resulted 09/21/20 15:05 Blood Blood Culture - Preliminary NO GROWTH AFTER 24 HOURS Resulted Intake and Output 09/22/20 09/23/20 19:00 07:00 Intake Total 360 ml Output Total 450 ml Balance -90 ml Intake Oral 360 ml Output Urine Total 450 ml # Voids 1 Objective PHYSICAL EXAMINATION: GENERAL: The patient is a well-developed and well-nourished male, in no apparent distress. HEENT: Eyes, pupils are equal and responsive to light and accommodation. Extraocular movements are intact. NECK: Supple without lymphadenopathy. CHEST: Decreased breath sounds bilateral bases with expiratory wheezes, otherwise without wheezes or rales. CARDIOVASCULAR: Tachycardic, regular rhythm and rate. S1, S2 normal without murmurs, rubs, or gallops. ABDOMEN: Soft, nontender, and nondistended. Positive bowel sounds. No evidence of hepatosplenomegaly. Currently, no rebound or guarding noted. EXTREMITIES: Negative for clubbing, cyanosis, or edema. RECTAL/GENITAL: Not performed. NEUROLOGIC: Cranial nerves II through XII grossly intact without focal deficits. Motor strength is 5/5 bilaterally. Deep tendon reflexes are 2+ bilaterally Assessment/Plan Assessment/Plan ASSESSMENT: This is a 75-year-old male with: 1. Pneumonia. 2. Dyspnea. 3. Gastric cancer with metastasis. 4. Hypertension. 5. Diabetes. TREATMENT: 1. Pneumonia. Infectious Disease = Drs. Hope/Wilberto. Continue vancomycin and cefepime. Await sputum cultures. 2. Dyspnea. Secondary to pneumonia as above. COVID-19=negative 3. Gastric cancer. The patient is followed as an outpatient by Dr. Lucy Fontaine. 4. Hypertension. The patient is currently hypotensive. 5. Diabetes type 2. The patient's glucose is currently within normal limits. Familia Mak MD Sep 23, 2020 12:07
--- NOTE | 2020-09-23 12:13 | NUR ---
NURSE NOTES: Contacted Dr. Martínez regarding K: 3.3 this AM. Awaiting call back.
--- NOTE | 2020-09-23 12:27 | Pulmonology Progress Note ---
Subjective ROS Limited/Unobtainable: No Allergies: Coded Allergies: No Known Allergies (Unverified , 10/23/19) Objective Last 24 Hour Vital Signs Date Time Temp Pulse Resp B/P (MAP) Pulse Ox O2 Delivery O2 Flow Rate FiO2 09/23/20 12:00 97.9 88 18 130/68 (88) 95 09/23/20 09:00 Room Air 09/23/20 08:00 98.6 96 18 151/86 (107) 95 09/23/20 07:56 89 09/23/20 04:00 55 09/23/20 00:00 67 09/23/20 00:00 98.8 58 18 122/56 (78) 95 09/22/20 21:00 Room Air 09/22/20 20:00 98.8 65 18 110/58 (75) 95 09/22/20 20:00 52 09/22/20 16:00 64 09/22/20 16:00 98.9 68 20 115/52 (73) 95 Intake and Output 09/22/20 09/23/20 19:00 07:00 Intake Total 360 ml Output Total 450 ml Balance -90 ml Intake Oral 360 ml Output Urine Total 450 ml # Voids 1 General Appearance: WD/WN HEENT: normocephalic, atraumatic Respiratory: chest wall non-tender, rhonchi - left, rhonchi - right Cardiovascular: normal peripheral pulses, normal rate Abdomen: normal bowel sounds, soft, non tender Genitourinary: normal external genitalia Extremities: no clubbing 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 normal Microbiology Date/Time Source Procedure Growth Status 09/22/20 00:00 Sputum Gram Stain - Final Resulted 09/22/20 00:00 Sputum Sputum Culture Pending Resulted 09/21/20 16:25 Nasopharynx SARS-CoV-2 RdRp Gene Assay - Final Complete 09/21/20 15:25 Blood Blood Culture - Preliminary NO GROWTH AFTER 24 HOURS Resulted 09/21/20 15:05 Blood Blood Culture - Preliminary NO GROWTH AFTER 24 HOURS Resulted Laboratory Tests 09/22/20 16:49: POC Whole Blood Glucose 114H 09/22/20 22:16: POC Whole Blood Glucose [Pending] 09/23/20 07:10: POC Whole Blood Glucose [Pending] 09/23/20 09:10: White Blood Count 7.2, Red Blood Count 3.22L, Hemoglobin 10.2L, Hematocrit 30.0L , Mean Corpuscular Volume 93, Mean Corpuscular Hemoglobin 31.6H, Mean Corpuscular Hemoglobin Concent 33.9, Red Cell Distribution Width 17.4H, Platelet Count 143L, Mean Platelet Volume 5.4L, Neutrophils (%) (Auto) 75.9H, Lymphocytes (%) (Auto) 9.7L, Monocytes (%) (Auto) 11.9H, Eosinophils (%) (Auto) 1.4, Basophils (%) (Auto) 1.2, Sodium Level 137, Potassium Level 3.3L, Chloride Level 107, Carbon Dioxide Level 22, Anion Gap 8, Blood Urea Nitrogen 14, Creatinine 0.9, Estimat Glomerular Filtration Rate > 60, Glucose Level 130H, Hemoglobin A1c [Pending], Uric Acid 3.1, Calcium Level 7.5L, Phosphorus Level 2.4L, Magnesium Level 1.5L, Iron Level 61, Total Iron Binding Capacity 214L, Percent Iron Saturation 29, Unsaturated Iron Binding 153, Ferritin 965H, Total Bilirubin 0.3, Gamma Glutamyl Transpeptidase 91H, Aspartate Amino Transf (AST/SGOT) 53H, Alanine Aminotransferase (ALT/SGPT) 47, Alkaline Phosphatase 183H, Lactate Dehydrogenase 268H, C-Reactive Protein, Quantitative 10.5H, Pro-B-Type Natriuretic Peptide 2478H, Total Protein 6.5, Albumin 2.2L, Globulin 4.3, Albumin/Globulin Ratio 0.5L, Triglycerides Level 139, Cholesterol Level 132, LDL Cholesterol 61, HDL Cholesterol 44, Cholesterol/HDL Ratio 3.0L, Vitamin B12 Level [Pending], Folate [Pending], Thyroid Stimulating Hormone (TSH) 2.060, Vancomycin Level Trough 13.0H 09/23/20 11:44: POC Whole Blood Glucose 111H Current Medications Medications (Trade) Dose Ordered Sig/Kali Route PRN Reason Start Time Stop Time Status Last Admin Dose Admin Acetaminophen (Tylenol) 650 mg Q4H PRN ORAL Temp >100.5 09/21/20 19:15 10/21/20 19:14 09/21/20 21:08 Albuterol/ Ipratropium (Albuterol/ Ipratropium) 3 ml Q4H PRN HHN Shortness of Breath 09/21/20 19:15 09/26/20 19:14 Cefepime HCl 2 gm/ Dextrose 110 ml @ 220 mls/hr Q24H IV 09/22/20 09:00 09/29/20 08:59 09/23/20 09:12 Dextrose (Dextrose 50%) 25 ml Q30M PRN IV Hypoglycemia 09/21/20 19:15 12/20/20 19:14 Dextrose (Dextrose 50%) 50 ml Q30M PRN IV Hypoglycemia 09/21/20 19:15 12/20/20 19:14 Heparin Sodium (Porcine) (Heparin 5000 units/ml) 5,000 units EVERY 12 HOURS SUBQ 09/21/20 21:00 11/05/20 20:59 09/23/20 09:09 Insulin Aspart (NovoLOG) BEFORE MEALS AND HS SUBQ 09/21/20 21:00 12/20/20 20:59 09/21/20 21:19 Lorazepam (Ativan 2mg/ml 1ml) 2 mg Q2H PRN IV For Anxiety 09/21/20 19:15 09/28/20 19:14 Ondansetron HCl (Zofran) 4 mg Q6H PRN IVP Nausea & Vomiting 09/21/20 19:15 10/21/20 19:14 Pantoprazole (Protonix) 40 mg DAILY ORAL 09/23/20 09:00 10/23/20 08:59 09/23/20 09:08 Polyethylene Glycol (Miralax) 17 gm DAILYPRN PRN ORAL Constipation 09/21/20 19:15 10/21/20 19:14 Potassium Chloride (K-Dur) 40 meq ONCE ORAL 09/23/20 12:15 09/23/20 14:30 Promethazine HCl/ Codeine (Phenergan with Codeine) 5 ml Q4H PRN ORAL For Cough 09/21/20 19:15 10/21/20 19:14 Tamsulosin HCl (Flomax) 0.4 mg DAILY ORAL 09/22/20 09:00 10/22/20 08:59 09/23/20 09:09 Vancomycin HCl (Vanco pharmacy to dose) 1 ea DAILY PRN MISC Per rx protocol 09/21/20 19:30 10/21/20 19:29 Vancomycin HCl 750 mg/Sodium Chloride 275 ml @ 183.333 mls/hr Q12H IVPB 09/22/20 09:00 09/27/20 08:59 09/23/20 09:08 Assessment/Plan Problems: (1) Interstitial pneumonia (2) Acute respiratory failure (3) Episode of generalized weakness (4) Gastric cancer (5) Diabetes mellitus (6) History of hypertension Assessment/Plan CRP is 10 today check sputum for C/s and Covid again BNP in negative. check echo CT of chest didn't show any PE ID evaluation appreciated sliding scale Dakota Prieto MD Sep 23, 2020 12:27
--- NOTE | 2020-09-23 12:38 | NUR ---
CASE MANAGEMENT:REVIEW 09/23/20 SI: SEPSIS. PNA WEAKNESS DURING CHEMO 97.9 88 18 130/68 95% ON RA H/H-10.2/30.0 K-3.3 IS: IV VANCOMYCIN Q12 IV CEFEPIME Q24 K-DUR PO X1 PROTONIX PO QD FLOMAX PO QD HEPARIN SQ Q12 : TELEMETRY STATUS DCP: FROM HOME
--- NOTE | 2020-09-23 12:47 | CDS Physician Query ---
Clarification is required for compliance, coding accuracy, and to reflect severity of illness for this patient Dear Dr. Familia Mak Date: 09/23/2020 CDS name: Karol Gay Clinical documentation states: ED note: 75-year-old male presents for shortness of breath...Pneumonia...Sepsis 09/23 progress note: Pneumonia....Continue vancomycin and cefepime. Await sputum cultures...The patient is currently hypotensive. Vitals/labs on admission: WBC 3.9, Temp 100.1, HR 125, RR 26 According to the clinical indications above, please indicate below the condition PHYSICIAN RESPONSE: [] Sepsis X SIRS [] SIRS with organ dysfunction [] Septic Shock [] Not applicable [] Other: Present on Admission: XYes No Clinically Undetermined Physician signature Date Please also document in your Progress Notes and/or Discharge Summary and indicate if the condition was present on admission. MTDD
--- NOTE | 2020-09-23 13:12 | NUR ---
NURSE NOTES: Patient is observed in bed, asleep but arousable by voice. Denies pain at this time. VSS. Will continue to monitor.
--- NOTE | 2020-09-23 14:53 | Nephrology Progress Note ---
Assessment/Plan Problem List: (1) Electrolyte imbalance (2) Proteinuria (3) Interstitial pneumonia (4) Gastric cancer (5) Diabetes mellitus Assessment Electrolyte imbalance 3+ proteinuria Diabetes mellitus Hypertension History of gastric cancer BPH Anemia Febrile, leukopenia, lymphopenia Chest x-ray: Alveolar edema/superimposed pneumonia/small bilateral pleural effusion Plan September 23: Labs reviewed. Abnormal electrolytes and chemistries noted and addressed. Continue per consultants. Sep 22: Monitor renal parameters and electrolytes Monitor urine output Keep the blood pressure over 95 systolic Hydrate as needed Anemia work-up Further comments after the labs results and urine studies Subjective ROS Limited/Unobtainable: No Constitutional: Reports: malaise Objective Objective Last 24 Hour Vital Signs Date Time Temp Pulse Resp B/P (MAP) Pulse Ox O2 Delivery O2 Flow Rate FiO2 09/23/20 12:00 97.9 88 18 130/68 (88) 95 09/23/20 11:48 55 09/23/20 09:00 Room Air 09/23/20 08:00 98.6 96 18 151/86 (107) 95 09/23/20 07:56 89 09/23/20 04:00 55 09/23/20 00:00 67 09/23/20 00:00 98.8 58 18 122/56 (78) 95 09/22/20 21:00 Room Air 09/22/20 20:00 98.8 65 18 110/58 (75) 95 09/22/20 20:00 52 09/22/20 16:00 64 09/22/20 16:00 98.9 68 20 115/52 (73) 95 Intake and Output 09/22/20 09/23/20 19:00 07:00 Intake Total 360 ml Output Total 450 ml Balance -90 ml Intake Oral 360 ml Output Urine Total 450 ml # Voids 1 Current Medications Medications (Trade) Dose Ordered Sig/Kali Route PRN Reason Start Time Stop Time Status Last Admin Dose Admin Acetaminophen (Tylenol) 650 mg Q4H PRN ORAL Temp >100.5 09/21/20 19:15 10/21/20 19:14 09/21/20 21:08 Albuterol/ Ipratropium (Albuterol/ Ipratropium) 3 ml Q4H PRN HHN Shortness of Breath 09/21/20 19:15 09/26/20 19:14 Cefepime HCl 2 gm/ Dextrose 110 ml @ 220 mls/hr Q24H IV 09/22/20 09:00 09/29/20 08:59 09/23/20 09:12 Dextrose (Dextrose 50%) 25 ml Q30M PRN IV Hypoglycemia 09/21/20 19:15 12/20/20 19:14 Dextrose (Dextrose 50%) 50 ml Q30M PRN IV Hypoglycemia 09/21/20 19:15 12/20/20 19:14 Heparin Sodium (Porcine) (Heparin 5000 units/ml) 5,000 units EVERY 12 HOURS SUBQ 09/21/20 21:00 11/05/20 20:59 09/23/20 09:09 Insulin Aspart (NovoLOG) BEFORE MEALS AND HS SUBQ 09/21/20 21:00 12/20/20 20:59 09/21/20 21:19 Lorazepam (Ativan 2mg/ml 1ml) 2 mg Q2H PRN IV For Anxiety 09/21/20 19:15 09/28/20 19:14 Magnesium Sulfate 100 ml @ 100 mls/hr Q1H IVPB 09/23/20 15:00 09/23/20 18:59 Ondansetron HCl (Zofran) 4 mg Q6H PRN IVP Nausea & Vomiting 09/21/20 19:15 10/21/20 19:14 Pantoprazole (Protonix) 40 mg DAILY ORAL 09/23/20 09:00 10/23/20 08:59 09/23/20 09:08 Polyethylene Glycol (Miralax) 17 gm DAILYPRN PRN ORAL Constipation 09/21/20 19:15 10/21/20 19:14 Potassium Phosphate 20 mm/ Sodium Chloride 281.6667 ml @ 46.944 m... ONCE ONCE IV 09/23/20 17:00 09/23/20 22:59 Promethazine HCl/ Codeine (Phenergan with Codeine) 5 ml Q4H PRN ORAL For Cough 09/21/20 19:15 10/21/20 19:14 Tamsulosin HCl (Flomax) 0.4 mg DAILY ORAL 09/22/20 09:00 10/22/20 08:59 09/23/20 09:09 Vancomycin HCl (Vanco pharmacy to dose) 1 ea DAILY PRN MISC Per rx protocol 09/21/20 19:30 10/21/20 19:29 Vancomycin HCl 750 mg/Sodium Chloride 275 ml @ 183.333 mls/hr Q12H IVPB 09/22/20 09:00 09/27/20 08:59 09/23/20 09:08 Laboratory Tests 09/22/20 16:49: POC Whole Blood Glucose 114H 09/22/20 22:16: POC Whole Blood Glucose [Pending] 09/23/20 07:10: POC Whole Blood Glucose [Pending] 09/23/20 09:10: White Blood Count 7.2, Red Blood Count 3.22L, Hemoglobin 10.2L, Hematocrit 30.0L , Mean Corpuscular Volume 93, Mean Corpuscular Hemoglobin 31.6H, Mean Corpuscular Hemoglobin Concent 33.9, Red Cell Distribution Width 17.4H, Platelet Count 143L, Mean Platelet Volume 5.4L, Neutrophils (%) (Auto) 75.9H, Lymphocytes (%) (Auto) 9.7L, Monocytes (%) (Auto) 11.9H, Eosinophils (%) (Auto) 1.4, Basophils (%) (Auto) 1.2, Sodium Level 137, Potassium Level 3.3L, Chloride Level 107, Carbon Dioxide Level 22, Anion Gap 8, Blood Urea Nitrogen 14, Creatinine 0.9, Estimat Glomerular Filtration Rate > 60, Glucose Level 130H, Hemoglobin A1c 5.7, Uric Acid 3.1, Calcium Level 7.5L, Phosphorus Level 2.4L, Magnesium Level 1.5L, Iron Level 61, Total Iron Binding Capacity 214L, Percent Iron Saturation 29, Unsaturated Iron Binding 153, Ferritin 965H, Total Bilirubin 0.3, Gamma Glutamyl Transpeptidase 91H, Aspartate Amino Transf (AST/SGOT) 53H, Alanine Aminotransferase (ALT/SGPT) 47, Alkaline Phosphatase 183H, Lactate Dehydrogenase 268H, C-Reactive Protein, Quantitative 10.5H, Pro-B-Type Natriuretic Peptide 2478H, Total Protein 6.5, Albumin 2.2L, Globulin 4.3, Albumin/Globulin Ratio 0.5L, Triglycerides Level 139, Cholesterol Level 132, LDL Cholesterol 61, HDL Cholesterol 44, Cholesterol/HDL Ratio 3.0L, Vitamin B12 Level 1225H, Folate 31.1, Thyroid Stimulating Hormone (TSH) 2.060, Vancomycin Level Trough 13.0H 09/23/20 11:44: POC Whole Blood Glucose 111H Height (Feet): 5 Height (Inches): 4.00 Weight (Pounds): 140 Cardiovascular: tachycardia Respiratory/Chest: decreased breath sounds Abdomen: distended Real Altman MD Sep 23, 2020 14:53
[2020-09-23 16:00] VITALS: BP 113/92
[2020-09-23] MEDS ORDERED: Potassium Phosphate 20 MM in NS 275 ML IV ONE (17:00)
--- NOTE | 2020-09-23 19:29 | NUR ---
NURSE HAND-OFF REPORT: Important Events on Shift: repleted electrolytes. Patient Status: stable condition. Diet: mech soft. Pending Orders: [] Pending Results/Labs: PCR covid Pending MD notification:[] Latest Vital Signs: Temperature 96.4 , Pulse 88 , B/P 113 /92 , Respiratory Rate 18 , O2 SAT 99 , Room Air, O2 Flow Rate 2.0 . Vital Sign Comment: [] EKG Rhythm: Sinus Bradycardia Rhythm change?: N MD Notified?: N - MD Response: Latest Turner Fall Score: 15 Fall Risk: Low Risk Safety Measures: Call light Within Reach, Bed Alarm , Side Rails Side Rails x2, Bed position Low and Locked. Fall Precautions: Door Sign Patient Fall Education Report given to Lisette OLMOS.
--- NOTE | 2020-09-23 19:40 | NUR ---
NURSE NOTES: Received pt from Zainab OLMOS. Pt is in awake in high-fowlers position at this time. Pt is on NC 2L saturating at 100%. No pain or acute distress noted. Pt is Latvian seeking and is A/O x 4, able to make need known. Patient has J chest Gabi cath running K-phos at this time. No erythema or bleeding noted at sight. Bed is lowest position, bed alarm on. Side sails up x2. Pt educated to use call light for assistance. Call light and belongings with in reach. Will continue to monitor.
[2020-09-23 20:00] VITALS: BP 123/71
--- NOTE | 2020-09-23 20:31 | NUR ---
NURSE NOTES: Spoke to Марина from Pharmacy regarding pt 21:00 vancomycin. Pt currently has one IV access (L chest antonio cath) running Potassium Phosphate. Per Марина from Pharmacy Vancomycin will be ran after Potassium Phosphate is completed. Noted and will monitor Potassium Phosphate.
[2020-09-24] VITALS: BP 143/76
[2020-09-24] MEDS: Vancomycin 750mg/NS 275ml IVPB SCH ×4 (01:12→09:00)
[2020-09-24 04:00] VITALS: BP 133/73
[2020-09-24] MEDS: NovoLOG Insulin Flexpen SUBQ SCH ×3 (06:30→16:03)
--- NOTE | 2020-09-24 06:58 | NUR ---
NURSE HAND-OFF REPORT: Important Events on Shift: Pt saturating at 94%-95% on room air. Patient was given 40mEq of k-dur, k-phos, and 4gm of Mg on day shift. Pt Vanco was ran late d/t pt k-phos per Марина from [facility] pharmacy. Patient Status: No acute distress Diet: CCHO Medium thin liquid whole pill Pending Orders: Pending Results/Labs: AM labs Pending MD notification: Latest Vital Signs: Temperature 97.9 , Pulse 57 , B/P 133 /73 , Respiratory Rate 20 , O2 SAT 95 , Nasal Cannula, O2 Flow Rate 2.0 . Vital Sign Comment: EKG Rhythm: Sinus Rhythm Rhythm change?: N MD Notified?: N - MD Response: Latest Turner Fall Score: 15 Fall Risk: Low Risk Safety Measures: Call light Within Reach, Bed Alarm , Side Rails Side Rails x2, Bed position Low and Locked. Fall Precautions: Door Sign Patient Fall Education Report given to . Addendum: 09/24/20 at 0738 by Lisette Abdullahi RN Report given to Alissa OLMOS.
[2020-09-24 07:35] LABS: BASOPHILS % (AUTO) 1.2 % (0.0-2.0); EOSINOPHILS % (AUTO) 1.6 % (0.0-3.0); HEMATOCRIT 27.4 % (42.0-52.0); HEMOGLOBIN 9.8 G/DL (14.2-18.0); LYMPHOCYTES % (AUTO) 10.9 % (20.0-45.0); MEAN CORPUSCULAR VOLUME 91 FL (80-99); NEUTROPHILS % (AUTO) 72.4 % (45.0-75.0); PLATELET COUNT 155 K/UL (150-450); WHITE BLOOD COUNT 6.6 K/UL (4.8-10.8)
--- NOTE | 2020-09-24 07:55 | NUR ---
NURSE NOTES: Received pt. Pt is awake and AOx4, pt is on room air with 96% O2 sat. No pain or acute distress noted. Pt is Mongolian speaking Patient has J chest Gabi cath running K-phos at this time. No erythema or bleeding noted at sight. Bed is lowest position, bed alarm on. Side sails up x2. Pt educated to use call light for assistance. Call light and belongings with in reach. Will continue to monitor.
[2020-09-24 08:00] VITALS: BP 132/60
[2020-09-24 08:17] LABS: ALANINE AMINOTRANSFERASE 46 U/L (12-78); ALBUMIN 2.2 G/DL (3.4-5.0); ALBUMIN/GLOBULIN RATIO 0.5 (1.0-2.7); ALKALINE PHOSPHATASE 193 U/L (46-116); ANION GAP 7 mmol/L (5-15); ASPARTATE AMINO TRANSFERASE 51 U/L (15-37); BILIRUBIN,TOTAL 0.4 MG/DL (0.2-1.0); BLOOD UREA NITROGEN 12 mg/dL (7-18); CALCIUM 7.7 MG/DL (8.5-10.1); CARBON DIOXIDE 23 MMOL/L (21-32); CHLORIDE 107 MMOL/L (98-107); CREATININE 0.9 MG/DL (0.55-1.30); POTASSIUM 3.9 MMOL/L (3.5-5.1); SODIUM 137 MMOL/L (136-145)
--- NOTE | 2020-09-24 08:20 | General Progress Note ---
Subjective ROS Limited/Unobtainable: No Allergies: Coded Allergies: No Known Allergies (Unverified , 10/23/19) Objective Last 24 Hour Vital Signs Date Time Temp Pulse Resp B/P (MAP) Pulse Ox O2 Delivery O2 Flow Rate FiO2 09/24/20 04:00 97.9 57 20 133/73 (93) 95 09/24/20 04:00 61 09/24/20 00:00 68 09/24/20 00:00 98.6 56 20 143/76 (98) 96 09/23/20 21:00 Nasal Cannula 2.0 09/23/20 20:00 97.7 56 20 123/71 (88) 94 09/23/20 20:00 70 09/23/20 16:00 96.4 88 18 113/92 (99) 99 09/23/20 15:24 57 09/23/20 12:00 97.9 88 18 130/68 (88) 95 09/23/20 11:48 55 09/23/20 09:00 Room Air Intake and Output 09/23/20 09/24/20 19:00 07:00 Intake Total 720 ml 360 ml Output Total 750 ml Balance 720 ml -390 ml Intake Oral 720 ml 360 ml Output Urine Total 750 ml # Voids 1 4 # Bowel Movements 1 Laboratory Tests 09/23/20 09:10: White Blood Count 7.2, Red Blood Count 3.22L, Hemoglobin 10.2L, Hematocrit 30.0L , Mean Corpuscular Volume 93, Mean Corpuscular Hemoglobin 31.6H, Mean Corpuscular Hemoglobin Concent 33.9, Red Cell Distribution Width 17.4H, Platelet Count 143L, Mean Platelet Volume 5.4L, Neutrophils (%) (Auto) 75.9H, Lymphocytes (%) (Auto) 9.7L, Monocytes (%) (Auto) 11.9H, Eosinophils (%) (Auto) 1.4, Basophils (%) (Auto) 1.2, Sodium Level 137, Potassium Level 3.3L, Chloride Level 107, Carbon Dioxide Level 22, Anion Gap 8, Blood Urea Nitrogen 14, Creatinine 0.9, Estimat Glomerular Filtration Rate > 60, Glucose Level 130H, Hemoglobin A1c 5.7, Uric Acid 3.1, Calcium Level 7.5L, Phosphorus Level 2.4L, Magnesium Level 1.5L, Iron Level 61, Total Iron Binding Capacity 214L, Percent Iron Saturation 29, Unsaturated Iron Binding 153, Ferritin 965H, Total Bilirubin 0.3, Gamma Glutamyl Transpeptidase 91H, Aspartate Amino Transf (AST/SGOT) 53H, Alanine Aminotransferase (ALT/SGPT) 47, Alkaline Phosphatase 183H, Lactate Dehydrogenase 268H, C-Reactive Protein, Quantitative 10.5H, Pro-B-Type Natriuretic Peptide 2478H, Total Protein 6.5, Albumin 2.2L, Globulin 4.3, Albumin/Globulin Ratio 0.5L, Triglycerides Level 139, Cholesterol Level 132, LDL Cholesterol 61, HDL Cholesterol 44, Cholesterol/HDL Ratio 3.0L, Vitamin B12 Level 1225H, Folate 31.1, Thyroid Stimulating Hormone (TSH) 2.060, Vancomycin Level Trough 13.0H 09/23/20 11:44: POC Whole Blood Glucose 111H 09/23/20 16:41: POC Whole Blood Glucose 115H 09/23/20 21:36: POC Whole Blood Glucose [Pending] 09/24/20 06:26: White Blood Count 6.6, Red Blood Count 3.00L, Hemoglobin 9.8L, Hematocrit 27.4L, Mean Corpuscular Volume 91, Mean Corpuscular Hemoglobin 32.6H, Mean Corpuscular Hemoglobin Concent 35.7, Red Cell Distribution Width 17.0H, Platelet Count 155, Mean Platelet Volume 5.8L, Neutrophils (%) (Auto) 72.4, Lymphocytes (%) (Auto) 10.9L, Monocytes (%) (Auto) 14.0H, Eosinophils (%) (Auto) 1.6, Basophils (%) (Auto) 1.2, Erythrocyte Sedimentation Rate [Pending], Sodium Level [Pending], Potassium Level [Pending], Chloride Level [Pending], Carbon Dioxide Level [Pend ing], Blood Urea Nitrogen [Pending], Creatinine [Pending], Estimat Glomerular Filtration Rate [Pending], Glucose Level [Pending], Calcium Level [Pending], Phosphorus Level [Pending], Magnesium Level [Pending], Total Bilirubin [Pending], Aspartate Amino Transf (AST/SGOT) [Pending], Alanine Aminotransferase (ALT/SGPT) [Pending], Alkaline Phosphatase [Pending], C-Reactive Protein, Boni ntitative [Pending], Total Protein [Pending], Albumin [Pending], Globulin [Pending] Height (Feet): 5 Height (Inches): 4.00 Weight (Pounds): 140 General Appearance: no apparent distress EENT: normal ENT inspection Neck: supple Cardiovascular: normal rate Respiratory/Chest: decreased breath sounds Abdomen: normal bowel sounds, non tender, soft Extremities: non-tender Assessment/Plan Assessment/Plan: 1. History of gastric cancer. 2. Diabetes. 3. Hypertension. 4. Hypercholesterolemia. 5. Constipation. 6. GERD. 7. BPH. fu H&H monitor po intake fu oncology recs DM control will fu Michael Owen MD Sep 24, 2020 08:20
--- NOTE | 2020-09-24 08:22 | Infectious Diseases Prog Note ---
Assessment/Plan 75yo M with Febrile to 100.9 & hypothermic to 96s Leukopenia >> normal WBC Lymphopenia Multifocal BL pneumonia 09/21 BCx NTD UA neg Resp cx +yeast, normal seth COVID rapid Ag neg, PCR neg CXR: 1. Interstitial pulmonary edema with associated bilateral patchy airspace opacities which could represent alveolar edema but superimposed pneumonia should be excluded clinically. 2. Small bilateral pleural effusions with compressive atelectasis. 09/22 CTA chest: No PE. Multifocal bilateral infiltrates noted. There is some mild central bronchiectasis. Cr 1.1 Stomach CA Plan: Cont empiric cefepime/vanco IV #3 while in house OK to d/c home on levofloxacin x4 more days to complete 1 week of abx; left Rx for this in pt's chart F/u repeat COVID PCR, low s/f COVID given improvement w/ abx and initial PCR neg Monitor CBC/CMP Monitor temp curve, hemodynamics Monitor resp status D/w RN Thank you for this consult. [facility] will continue to follow. Subjective Allergies: Coded Allergies: No Known Allergies (Unverified , 10/23/19) AF NAD on RA WBC 6.6 COVID PCR neg Feeling much better, wants to go home, reports breathing is back to normal, able to ambulate wo issues. Objective Last 24 Hour Vital Signs Date Time Temp Pulse Resp B/P (MAP) Pulse Ox O2 Delivery O2 Flow Rate FiO2 09/24/20 04:00 97.9 57 20 133/73 (93) 95 09/24/20 04:00 61 09/24/20 00:00 68 09/24/20 00:00 98.6 56 20 143/76 (98) 96 09/23/20 21:00 Nasal Cannula 2.0 09/23/20 20:00 97.7 56 20 123/71 (88) 94 09/23/20 20:00 70 09/23/20 16:00 96.4 88 18 113/92 (99) 99 09/23/20 15:24 57 09/23/20 12:00 97.9 88 18 130/68 (88) 95 09/23/20 11:48 55 09/23/20 09:00 Room Air Height (Feet): 5 Height (Inches): 4.00 Weight (Pounds): 140 Gen: NAD HEENT: NCAT Pulm: BL chest rise Abd: Non-distended Ext: No c/c/e Skin: No visible rashes Neuro: Awake Microbiology Date/Time Source Procedure Growth Status 09/22/20 00:00 Sputum Gram Stain - Final Resulted 09/22/20 00:00 Sputum Sputum Culture Pending Resulted 09/21/20 16:25 Nasopharynx SARS-CoV-2 RdRp Gene Assay - Final Complete 09/21/20 16:25 Nasopharynx Coronavirus COVID-19 PCR (TERRA) - Final Complete 09/21/20 15:25 Blood Blood Culture - Preliminary NO GROWTH AFTER 48 HOURS Resulted 09/21/20 15:05 Blood Blood Culture - Preliminary NO GROWTH AFTER 48 HOURS Resulted Laboratory Tests Test 09/23/20 09:10 09/23/20 11:44 09/23/20 16:41 09/23/20 21:36 White Blood Count 7.2 K/UL (4.8-10.8) Red Blood Count 3.22 M/UL (4.70-6.10) L Hemoglobin 10.2 G/DL (14.2-18.0) L Hematocrit 30.0 % (42.0-52.0) L Mean Corpuscular Volume 93 FL (80-99) Mean Corpuscular Hemoglobin 31.6 PG (27.0-31.0) H Mean Corpuscular Hemoglobin Concent 33.9 G/DL (32.0-36.0) Red Cell Distribution Width 17.4 % (11.6-14.8) H Platelet Count 143 K/UL (150-450) L Mean Platelet Volume 5.4 FL (6.5-10.1) L Neutrophils (%) (Auto) 75.9 % (45.0-75.0) H Lymphocytes (%) (Auto) 9.7 % (20.0-45.0) L Monocytes (%) (Auto) 11.9 % (1.0-10.0) H Eosinophils (%) (Auto) 1.4 % (0.0-3.0) Basophils (%) (Auto) 1.2 % (0.0-2.0) Sodium Level 137 MMOL/L (136-145) Potassium Level 3.3 MMOL/L (3.5-5.1) L Chloride Level 107 MMOL/L (98-107) Carbon Dioxide Level 22 MMOL/L (21-32) Anion Gap 8 mmol/L (5-15) Blood Urea Nitrogen 14 mg/dL (7-18) Creatinine 0.9 MG/DL (0.55-1.30) Estimat Glomerular Filtration Rate > 60 mL/min (>60) Glucose Level 130 MG/DL (74-106) H Hemoglobin A1c 5.7 % (4.3-6.0) Uric Acid 3.1 MG/DL (2.6-7.2) Calcium Level 7.5 MG/DL (8.5-10.1) L Phosphorus Level 2.4 MG/DL (2.5-4.9) L Magnesium Level 1.5 MG/DL (1.8-2.4) L Iron Level 61 ug/dL (50-175) Total Iron Binding Capacity 214 ug/dL (250-450) L Percent Iron Saturation 29 % (15-50) Unsaturated Iron Binding 153 ug/dL (112-346) Ferritin 965 NG/ML (8-388) H Total Bilirubin 0.3 MG/DL (0.2-1.0) Gamma Glutamyl Transpeptidase 91 U/L (5-85) H Aspartate Amino Transf (AST/SGOT) 53 U/L (15-37) H Alanine Aminotransferase (ALT/SGPT) 47 U/L (12-78) Alkaline Phosphatase 183 U/L (46-116) H Lactate Dehydrogenase 268 U/L (81-234) H C-Reactive Protein, Quantitative 10.5 mg/dL (0.00-0.90) H Pro-B-Type Natriuretic Peptide 2478 pg/mL (0-125) H Total Protein 6.5 G/DL (6.4-8.2) Albumin 2.2 G/DL (3.4-5.0) L Globulin 4.3 g/dL Albumin/Globulin Ratio 0.5 (1.0-2.7) L Triglycerides Level 139 MG/DL (30-150) Cholesterol Level 132 MG/DL (< 200) LDL Cholesterol 61 mg/dL (<100) HDL Cholesterol 44 MG/DL (40-60) Cholesterol/HDL Ratio 3.0 (3.3-4.4) L Vitamin B12 Level 1225 PG/ML (193-986) H Folate 31.1 NG/ML (8.6-58.9) Thyroid Stimulating Hormone (TSH) 2.060 uiU/mL (0.358-3.740) Vancomycin Level Trough 13.0 ug/mL (5.0-12.0) H POC Whole Blood Glucose 111 MG/DL (74-106) H 115 MG/DL (74-106) H Pending Test 09/24/20 06:26 White Blood Count 6.6 K/UL (4.8-10.8) Red Blood Count 3.00 M/UL (4.70-6.10) L Hemoglobin 9.8 G/DL (14.2-18.0) L Hematocrit 27.4 % (42.0-52.0) L Mean Corpuscular Volume 91 FL (80-99) Mean Corpuscular Hemoglobin 32.6 PG (27.0-31.0) H Mean Corpuscular Hemoglobin Concent 35.7 G/DL (32.0-36.0) Red Cell Distribution Width 17.0 % (11.6-14.8) H Platelet Count 155 K/UL (150-450) Mean Platelet Volume 5.8 FL (6.5-10.1) L Neutrophils (%) (Auto) 72.4 % (45.0-75.0) Lymphocytes (%) (Auto) 10.9 % (20.0-45.0) L Monocytes (%) (Auto) 14.0 % (1.0-10.0) H Eosinophils (%) (Auto) 1.6 % (0.0-3.0) Basophils (%) (Auto) 1.2 % (0.0-2.0) Erythrocyte Sedimentation Rate Pending Sodium Level Pending Potassium Level Pending Chloride Level Pending Carbon Dioxide Level Pending Blood Urea Nitrogen Pending Creatinine Pending Estimat Glomerular Filtration Rate Pending Glucose Level Pending Calcium Level Pending Phosphorus Level Pending Magnesium Level Pending Total Bilirubin Pending Aspartate Amino Transf (AST/SGOT) Pending Alanine Aminotransferase (ALT/SGPT) Pending Alkaline Phosphatase Pending C-Reactive Protein, Quantitative Pending Total Protein Pending Albumin Pending Globulin Pending Current Medications Medications (Trade) Dose Ordered Sig/Kali Route PRN Reason Start Time Stop Time Status Last Admin Dose Admin Acetaminophen (Tylenol) 650 mg Q4H PRN ORAL Temp >100.5 09/21/20 19:15 1/6/21 19:14 09/21/20 21:08 Albuterol/ Ipratropium (Albuterol/ Ipratropium) 3 ml Q4H PRN HHN Shortness of Breath 09/21/20 19:15 09/26/20 19:14 Cefepime HCl 2 gm/ Dextrose 110 ml @ 220 mls/hr Q24H IV 09/22/20 09:00 09/29/20 08:59 09/23/20 09:12 Dextrose (Dextrose 50%) 25 ml Q30M PRN IV Hypoglycemia 09/21/20 19:15 12/20/20 19:14 Dextrose (Dextrose 50%) 50 ml Q30M PRN IV Hypoglycemia 09/21/20 19:15 12/20/20 19:14 Heparin Sodium (Porcine) (Heparin 5000 units/ml) 5,000 units EVERY 12 HOURS SUBQ 09/21/20 21:00 11/05/20 20:59 09/23/20 21:39 Insulin Aspart (NovoLOG) BEFORE MEALS AND HS SUBQ 09/21/20 21:00 12/20/20 20:59 09/21/20 21:19 Lorazepam (Ativan 2mg/ml 1ml) 2 mg Q2H PRN IV For Anxiety 09/21/20 19:15 09/28/20 19:14 Ondansetron HCl (Zofran) 4 mg Q6H PRN IVP Nausea & Vomiting 09/21/20 19:15 10/21/20 19:14 Pantoprazole (Protonix) 40 mg DAILY ORAL 09/23/20 09:00 10/23/20 08:59 09/23/20 09:08 Polyethylene Glycol (Miralax) 17 gm DAILYPRN PRN ORAL Constipation 09/21/20 19:15 10/21/20 19:14 Promethazine HCl/ Codeine (Phenergan with Codeine) 5 ml Q4H PRN ORAL For Cough 09/21/20 19:15 10/21/20 19:14 09/23/20 21:47 Tamsulosin HCl (Flomax) 0.4 mg DAILY ORAL 09/22/20 09:00 10/22/20 08:59 09/23/20 09:09 Vancomycin HCl (Vanco pharmacy to dose) 1 ea DAILY PRN MISC Per rx protocol 09/21/20 19:30 10/21/20 19:29 Vancomycin HCl 750 mg/Sodium Chloride 275 ml @ 183.333 mls/hr Q12H IVPB 09/22/20 09:00 09/27/20 08:59 09/24/20 01:12 Anna Ladd M.D. Sep 24, 2020 08:22
[2020-09-24 08:51] LABS: PHOSPHORUS 3.1 MG/DL (2.5-4.9)
[2020-09-24] MEDS: Tamsulosin 0.4mg cap ORAL SCH (10:26)
[2020-09-24] MEDS: Heparin 5000 units/ml inj SUBQ SCH (10:27)
[2020-09-24] MEDS: Cefepime HCl 2 GM in D5W 110 ML IV SCH (10:29)
[2020-09-24 12:00] VITALS: BP 140/62
--- NOTE | 2020-09-24 12:15 | Pulmonology Progress Note ---
Subjective ROS Limited/Unobtainable: No Constitutional: Reports: no symptoms HEENT: Repors: no symptoms Allergies: Coded Allergies: No Known Allergies (Unverified , 10/23/19) Objective Last 24 Hour Vital Signs Date Time Temp Pulse Resp B/P (MAP) Pulse Ox O2 Delivery O2 Flow Rate FiO2 09/24/20 08:00 57 09/24/20 04:00 97.9 57 20 133/73 (93) 95 09/24/20 04:00 61 09/24/20 00:00 68 09/24/20 00:00 98.6 56 20 143/76 (98) 96 09/23/20 21:00 Nasal Cannula 2.0 09/23/20 20:00 97.7 56 20 123/71 (88) 94 09/23/20 20:00 70 09/23/20 16:00 96.4 88 18 113/92 (99) 99 09/23/20 15:24 57 Intake and Output 09/23/20 09/24/20 19:00 07:00 Intake Total 720 ml 360 ml Output Total 750 ml Balance 720 ml -390 ml Intake Oral 720 ml 360 ml Output Urine Total 750 ml # Voids 1 4 # Bowel Movements 1 General Appearance: WD/WN HEENT: normocephalic, atraumatic Respiratory: chest wall non-tender, rhonchi - left, rhonchi - right Cardiovascular: normal peripheral pulses, normal rate Abdomen: normal bowel sounds, soft, non tender Genitourinary: normal external genitalia Extremities: no clubbing 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 Microbiology Date/Time Source Procedure Growth Status 09/22/20 00:00 Sputum Gram Stain - Final Resulted 09/22/20 00:00 Sputum Culture - Preliminary YEAST Usual Respiratory Bushra Resulted 09/21/20 16:25 Nasopharynx SARS-CoV-2 RdRp Gene Assay - Final Complete 09/21/20 16:25 Nasopharynx Coronavirus COVID-19 PCR (TERRA) - Final Complete 09/21/20 15:25 Blood Blood Culture - Preliminary NO GROWTH AFTER 48 HOURS Resulted 09/21/20 15:05 Blood Blood Culture - Preliminary NO GROWTH AFTER 48 HOURS Resulted Laboratory Tests 09/23/20 16:41: POC Whole Blood Glucose 115H 09/23/20 21:36: POC Whole Blood Glucose [Pending] 09/24/20 06:26: White Blood Count 6.6, Red Blood Count 3.00L, Hemoglobin 9.8L, Hematocrit 27.4L, Mean Corpuscular Volume 91, Mean Corpuscular Hemoglobin 32.6H, Mean Corpuscular Hemoglobin Concent 35.7, Red Cell Distribution Width 17.0H, Platelet Count 155, Mean Platelet Volume 5.8L, Neutrophils (%) (Auto) 72.4, Lymphocytes (%) (Auto) 10.9L, Monocytes (%) (Auto) 14.0H, Eosinophils (%) (Auto) 1.6, Basophils (%) (Auto) 1.2, Erythrocyte Sedimentation Rate 124H, Sodium Level 137, Potassium Level 3.9, Chloride Level 107, Carbon Dioxide Level 23, Anion Gap 7, Blood Urea Nitrogen 12, Creatinine 0.9, Estimat Glomerular Filtration Rate > 60, Glucose Level 105, Calcium Level 7.7L, Phosphorus Level 3.1, Magnesium Level 2.2, Total Bilirubin 0.4, Aspartate Amino Transf (AST/SGOT) 51H, Alanine Aminotransferase (ALT/SGPT) 46, Alkaline Phosphatase 193H, C-Reactive Protein, Quantitative 8.6H, Total Protein 6.5, Albumin 2.2L, Globulin 4.3, Albumin/Globulin Ratio 0.5L Current Medications Medications (Trade) Dose Ordered Sig/Kali Route PRN Reason Start Time Stop Time Status Last Admin Dose Admin Acetaminophen (Tylenol) 650 mg Q4H PRN ORAL Temp >100.5 09/21/20 19:15 10/21/20 19:14 09/21/20 21:08 Albuterol/ Ipratropium (Albuterol/ Ipratropium) 3 ml Q4H PRN HHN Shortness of Breath 09/21/20 19:15 09/26/20 19:14 Cefepime HCl 2 gm/ Dextrose 110 ml @ 220 mls/hr Q24H IV 09/22/20 09:00 09/29/20 08:59 09/24/20 10:29 Dextrose (Dextrose 50%) 25 ml Q30M PRN IV Hypoglycemia 09/21/20 19:15 12/20/20 19:14 Dextrose (Dextrose 50%) 50 ml Q30M PRN IV Hypoglycemia 09/21/20 19:15 12/20/20 19:14 Heparin Sodium (Porcine) (Heparin 5000 units/ml) 5,000 units EVERY 12 HOURS SUBQ 09/21/20 21:00 11/05/20 20:59 09/24/20 10:27 Insulin Aspart (NovoLOG) BEFORE MEALS AND HS SUBQ 09/21/20 21:00 12/20/20 20:59 09/21/20 21:19 Lorazepam (Ativan 2mg/ml 1ml) 2 mg Q2H PRN IV For Anxiety 09/21/20 19:15 09/28/20 19:14 Ondansetron HCl (Zofran) 4 mg Q6H PRN IVP Nausea & Vomiting 09/21/20 19:15 10/21/20 19:14 Pantoprazole (Protonix) 40 mg DAILY ORAL 09/23/20 09:00 10/23/20 08:59 09/24/20 10:26 Polyethylene Glycol (Miralax) 17 gm DAILYPRN PRN ORAL Constipation 09/21/20 19:15 10/21/20 19:14 Promethazine HCl/ Codeine (Phenergan with Codeine) 5 ml Q4H PRN ORAL For Cough 09/21/20 19:15 10/21/20 19:14 09/23/20 21:47 Tamsulosin HCl (Flomax) 0.4 mg DAILY ORAL 09/22/20 09:00 10/22/20 08:59 09/24/20 10:26 Vancomycin HCl (Vanco pharmacy to dose) 1 ea DAILY PRN MISC Per rx protocol 09/21/20 19:30 10/21/20 19:29 Vancomycin HCl 750 mg/Sodium Chloride 275 ml @ 183.333 mls/hr Q12H IVPB 09/22/20 09:00 09/27/20 08:59 09/24/20 09:00 Assessment/Plan Problems: (1) Interstitial pneumonia (2) Acute respiratory failure (3) Episode of generalized weakness (4) Gastric cancer (5) Diabetes mellitus (6) History of hypertension Assessment/Plan doing better check sputum for C/s and Covid again BNP in negative. check echo, EF 55% CT of chest didn't show any PE ID evaluation appreciated sliding scale Dakota Prieto MD Sep 24, 2020 12:15
--- NOTE | 2020-09-24 13:18 | Nephrology Progress Note ---
Assessment/Plan Problem List: (1) Electrolyte imbalance (2) Proteinuria (3) Interstitial pneumonia (4) Gastric cancer (5) Diabetes mellitus Assessment Electrolyte imbalance 3+ proteinuria Diabetes mellitus Hypertension History of gastric cancer BPH Anemia Febrile, leukopenia, lymphopenia Chest x-ray: Alveolar edema/superimposed pneumonia/small bilateral pleural effusion Plan September 24: Labs reviewed. Abnormal electrolyte addressed. Continue per consultants. September 23: Labs reviewed. Abnormal electrolytes and chemistries noted and addressed. Continue per consultants. Sep 22: Monitor renal parameters and electrolytes Monitor urine output Keep the blood pressure over 95 systolic Hydrate as needed Anemia work-up Further comments after the labs results and urine studies Subjective ROS Limited/Unobtainable: No Constitutional: Reports: malaise Objective Objective Last 24 Hour Vital Signs Date Time Temp Pulse Resp B/P (MAP) Pulse Ox O2 Delivery O2 Flow Rate FiO2 09/24/20 12:00 99.7 88 20 140/62 (88) 99 09/24/20 09:00 Nasal Cannula 2.0 09/24/20 08:00 57 09/24/20 08:00 98.4 81 20 132/60 (84) 98 09/24/20 04:00 97.9 57 20 133/73 (93) 95 09/24/20 04:00 61 09/24/20 00:00 68 09/24/20 00:00 98.6 56 20 143/76 (98) 96 09/23/20 21:00 Nasal Cannula 2.0 09/23/20 20:00 97.7 56 20 123/71 (88) 94 09/23/20 20:00 70 09/23/20 16:00 96.4 88 18 113/92 (99) 99 09/23/20 15:24 57 Intake and Output 09/23/20 09/24/20 19:00 07:00 Intake Total 720 ml 360 ml Output Total 750 ml Balance 720 ml -390 ml Intake Oral 720 ml 360 ml Output Urine Total 750 ml # Voids 1 4 # Bowel Movements 1 Current Medications Medications (Trade) Dose Ordered Sig/Kali Route PRN Reason Start Time Stop Time Status Last Admin Dose Admin Acetaminophen (Tylenol) 650 mg Q4H PRN ORAL Temp >100.5 09/21/20 19:15 10/21/20 19:14 09/21/20 21:08 Albuterol/ Ipratropium (Albuterol/ Ipratropium) 3 ml Q4H PRN HHN Shortness of Breath 09/21/20 19:15 09/26/20 19:14 Cefepime HCl 2 gm/ Dextrose 110 ml @ 220 mls/hr Q24H IV 09/22/20 09:00 09/29/20 08:59 09/24/20 10:29 Dextrose (Dextrose 50%) 25 ml Q30M PRN IV Hypoglycemia 09/21/20 19:15 12/20/20 19:14 Dextrose (Dextrose 50%) 50 ml Q30M PRN IV Hypoglycemia 09/21/20 19:15 12/20/20 19:14 Heparin Sodium (Porcine) (Heparin 5000 units/ml) 5,000 units EVERY 12 HOURS SUBQ 09/21/20 21:00 11/05/20 20:59 09/24/20 10:27 Insulin Aspart (NovoLOG) BEFORE MEALS AND HS SUBQ 09/21/20 21:00 12/20/20 20:59 09/21/20 21:19 Lorazepam (Ativan 2mg/ml 1ml) 2 mg Q2H PRN IV For Anxiety 09/21/20 19:15 09/28/20 19:14 Ondansetron HCl (Zofran) 4 mg Q6H PRN IVP Nausea & Vomiting 09/21/20 19:15 10/21/20 19:14 Pantoprazole (Protonix) 40 mg DAILY ORAL 09/23/20 09:00 10/23/20 08:59 09/24/20 10:26 Polyethylene Glycol (Miralax) 17 gm DAILYPRN PRN ORAL Constipation 09/21/20 19:15 10/21/20 19:14 Promethazine HCl/ Codeine (Phenergan with Codeine) 5 ml Q4H PRN ORAL For Cough 09/21/20 19:15 10/21/20 19:14 09/23/20 21:47 Tamsulosin HCl (Flomax) 0.4 mg DAILY ORAL 09/22/20 09:00 10/22/20 08:59 09/24/20 10:26 Vancomycin HCl (Vanco pharmacy to dose) 1 ea DAILY PRN MISC Per rx protocol 09/21/20 19:30 10/21/20 19:29 Vancomycin HCl 750 mg/Sodium Chloride 275 ml @ 183.333 mls/hr Q12H IVPB 09/22/20 09:00 09/27/20 08:59 09/24/20 09:00 Laboratory Tests 09/23/20 16:41: POC Whole Blood Glucose 115H 09/23/20 21:36: POC Whole Blood Glucose [Pending] 09/24/20 06:26: White Blood Count 6.6, Red Blood Count 3.00L, Hemoglobin 9.8L, Hematocrit 27.4L, Mean Corpuscular Volume 91, Mean Corpuscular Hemoglobin 32.6H, Mean Corpuscular Hemoglobin Concent 35.7, Red Cell Distribution Width 17.0H, Platelet Count 155, Mean Platelet Volume 5.8L, Neutrophils (%) (Auto) 72.4, Lymphocytes (%) (Auto) 10.9L, Monocytes (%) (Auto) 14.0H, Eosinophils (%) (Auto) 1.6, Basophils (%) (Auto) 1.2, Erythrocyte Sedimentation Rate 124H, Sodium Level 137, Potassium Level 3.9, Chloride Level 107, Carbon Dioxide Level 23, Anion Gap 7, Blood Urea Nitrogen 12, Creatinine 0.9, Estimat Glomerular Filtration Rate > 60, Glucose Level 105, Calcium Level 7.7L, Phosphorus Level 3.1, Magnesium Level 2.2, Total Bilirubin 0.4, Aspartate Amino Transf (AST/SGOT) 51H, Alanine Aminotransferase (ALT/SGPT) 46, Alkaline Phosphatase 193H, C-Reactive Protein, Quantitative 8.6H, Total Protein 6.5, Albumin 2.2L, Globulin 4.3, Albumin/Globulin Ratio 0.5L Height (Feet): 5 Height (Inches): 4.00 Weight (Pounds): 140 General Appearance: no apparent distress Cardiovascular: other - Variable rate Respiratory/Chest: decreased breath sounds Abdomen: distended Real Altman MD Sep 24, 2020 13:18
--- NOTE | 2020-09-24 13:59 | Internal Med Progress Note ---
Subjective Physician Name Hung Martínez Attending Physician Hung Martínez MD Current Medications Medications (Trade) Dose Ordered Sig/Kali Route PRN Reason Start Time Stop Time Status Last Admin Dose Admin Acetaminophen (Tylenol) 650 mg Q4H PRN ORAL Temp >100.5 09/21/20 19:15 10/21/20 19:14 09/21/20 21:08 Albuterol/ Ipratropium (Albuterol/ Ipratropium) 3 ml Q4H PRN HHN Shortness of Breath 09/21/20 19:15 09/26/20 19:14 Cefepime HCl 2 gm/ Dextrose 110 ml @ 220 mls/hr Q24H IV 09/22/20 09:00 09/29/20 08:59 09/24/20 10:29 Dextrose (Dextrose 50%) 25 ml Q30M PRN IV Hypoglycemia 09/21/20 19:15 12/20/20 19:14 Dextrose (Dextrose 50%) 50 ml Q30M PRN IV Hypoglycemia 09/21/20 19:15 12/20/20 19:14 Heparin Sodium (Porcine) (Heparin 5000 units/ml) 5,000 units EVERY 12 HOURS SUBQ 09/21/20 21:00 11/05/20 20:59 09/24/20 10:27 Insulin Aspart (NovoLOG) BEFORE MEALS AND HS SUBQ 09/21/20 21:00 12/20/20 20:59 09/21/20 21:19 Lorazepam (Ativan 2mg/ml 1ml) 2 mg Q2H PRN IV For Anxiety 09/21/20 19:15 09/28/20 19:14 Ondansetron HCl (Zofran) 4 mg Q6H PRN IVP Nausea & Vomiting 09/21/20 19:15 10/21/20 19:14 Pantoprazole (Protonix) 40 mg DAILY ORAL 09/23/20 09:00 10/23/20 08:59 09/24/20 10:26 Polyethylene Glycol (Miralax) 17 gm DAILYPRN PRN ORAL Constipation 09/21/20 19:15 10/21/20 19:14 Promethazine HCl/ Codeine (Phenergan with Codeine) 5 ml Q4H PRN ORAL For Cough 09/21/20 19:15 10/21/20 19:14 09/23/20 21:47 Tamsulosin HCl (Flomax) 0.4 mg DAILY ORAL 09/22/20 09:00 10/22/20 08:59 09/24/20 10:26 Vancomycin HCl (Vanco pharmacy to dose) 1 ea DAILY PRN MISC Per rx protocol 09/21/20 19:30 10/21/20 19:29 Vancomycin HCl 750 mg/Sodium Chloride 275 ml @ 183.333 mls/hr Q12H IVPB 09/22/20 09:00 09/27/20 08:59 09/24/20 09:00 Allergies: Coded Allergies: No Known Allergies (Unverified , 10/23/19) Subjective awake, alert, responsive, denies any chest pain or shortness of breath. Objective Last Vital Signs Date Time Temp Pulse Resp B/P (MAP) Pulse Ox O2 Delivery O2 Flow Rate FiO2 09/24/20 12:00 99.7 88 20 140/62 (88) 99 09/24/20 09:00 Nasal Cannula 2.0 Laboratory Tests Test 09/23/20 16:41 09/23/20 21:36 09/24/20 06:26 POC Whole Blood Glucose 115 MG/DL (74-106) H Pending White Blood Count 6.6 K/UL (4.8-10.8) Red Blood Count 3.00 M/UL (4.70-6.10) L Hemoglobin 9.8 G/DL (14.2-18.0) L Hematocrit 27.4 % (42.0-52.0) L Mean Corpuscular Volume 91 FL (80-99) Mean Corpuscular Hemoglobin 32.6 PG (27.0-31.0) H Mean Corpuscular Hemoglobin Concent 35.7 G/DL (32.0-36.0) Red Cell Distribution Width 17.0 % (11.6-14.8) H Platelet Count 155 K/UL (150-450) Mean Platelet Volume 5.8 FL (6.5-10.1) L Neutrophils (%) (Auto) 72.4 % (45.0-75.0) Lymphocytes (%) (Auto) 10.9 % (20.0-45.0) L Monocytes (%) (Auto) 14.0 % (1.0-10.0) H Eosinophils (%) (Auto) 1.6 % (0.0-3.0) Basophils (%) (Auto) 1.2 % (0.0-2.0) Erythrocyte Sedimentation Rate 124 MM/HR (0-20) H Sodium Level 137 MMOL/L (136-145) Potassium Level 3.9 MMOL/L (3.5-5.1) Chloride Level 107 MMOL/L (98-107) Carbon Dioxide Level 23 MMOL/L (21-32) Anion Gap 7 mmol/L (5-15) Blood Urea Nitrogen 12 mg/dL (7-18) Creatinine 0.9 MG/DL (0.55-1.30) Estimat Glomerular Filtration Rate > 60 mL/min (>60) Glucose Level 105 MG/DL (74-106) Calcium Level 7.7 MG/DL (8.5-10.1) L Phosphorus Level 3.1 MG/DL (2.5-4.9) Magnesium Level 2.2 MG/DL (1.8-2.4) Total Bilirubin 0.4 MG/DL (0.2-1.0) Aspartate Amino Transf (AST/SGOT) 51 U/L (15-37) H Alanine Aminotransferase (ALT/SGPT) 46 U/L (12-78) Alkaline Phosphatase 193 U/L (46-116) H C-Reactive Protein, Quantitative 8.6 mg/dL (0.00-0.90) H Total Protein 6.5 G/DL (6.4-8.2) Albumin 2.2 G/DL (3.4-5.0) L Globulin 4.3 g/dL Albumin/Globulin Ratio 0.5 (1.0-2.7) L Microbiology Date/Time Source Procedure Growth Status 09/22/20 00:00 Sputum Gram Stain - Final Resulted 09/22/20 00:00 Sputum Culture - Preliminary YEAST Usual Respiratory Bushra Resulted 09/21/20 16:25 Nasopharynx SARS-CoV-2 RdRp Gene Assay - Final Complete 09/21/20 16:25 Nasopharynx Coronavirus COVID-19 PCR (TERRA) - Final Complete 09/21/20 15:25 Blood Blood Culture - Preliminary NO GROWTH AFTER 48 HOURS Resulted 09/21/20 15:05 Blood Blood Culture - Preliminary NO GROWTH AFTER 48 HOURS Resulted Intake and Output 09/23/20 09/24/20 19:00 07:00 Intake Total 720 ml 360 ml Output Total 750 ml Balance 720 ml -390 ml Intake Oral 720 ml 360 ml Output Urine Total 750 ml # Voids 1 4 # Bowel Movements 1 Objective General: No acute distress, awake and alert HEENT: NCAT, sclera anicteric, PERRL, EOMI. Neck: Supple, no significant jugular venous distention, Lungs: Good inspiratory effort, no accessory muscle use, clear to auscultation bilaterally, no Wheeze or Rales. Heart: Regular rate and rhythm, normal S1/S2, no murmurs/gallops Abdomen: soft, nontender, nondistended. Normoactive bowel sounds. / Rectal: Refused and deferred. Extremities: No Cyanosis , clubbing or edema. Neuro: A&O x 3, Able to move all extremities Skin: warm, no rashes or lesions Psych: Normal mood and affect Assessment/Plan Assessment/Plan ASSESSMENT: This is a 75-year-old male with: 1. Pneumonia. 2. Dyspnea. 3. Gastric cancer with metastasis. 4. Hypertension. 5. Diabetes. TREATMENT: 1. Pneumonia. Infectious Disease = Drs. Hope/Wilberto. Continue vancomycin and cefepime. Await sputum cultures. 2. Dyspnea. Secondary to pneumonia as above. COVID-19=negative 3. Gastric cancer. The patient is followed as an outpatient by Dr. Lucy Fontaine. 4. Hypertension. The patient is currently hypotensive. 5. Diabetes type 2. The patient's glucose is currently within normal limits. DC home today Continue on levofloxacin x4 more days to complete 1 week of abx; Hung Martínez MD Sep 24, 2020 13:59
[2020-09-24] MEDS ORDERED: ALPHA LIPOIC A100 MG PO (14:16)
[2020-09-24] MEDS ORDERED: LOPERAMIDE2 MG PO (14:25)
[2020-09-24] MEDS ORDERED: GUAIFENESIN-CO473 ML PO (14:25)
[2020-09-24] MEDS ORDERED: ONDANSETRON ODT8 MG ORAL (14:42)
[2020-09-24] MEDS ORDERED: OYSTER SHELL C500 MG PO (14:42)
[2020-09-24] MEDS ORDERED: [UNRECOGNIZED DRUG - OTHER] IV (14:42)
[2020-09-24] MEDS ORDERED: VITAMIN D325 MC1 PO (14:42)
[2020-09-24] MEDS ORDERED: MULTIVITAMINS1 EAC2 ORAL (14:42)
[2020-09-24] MEDS ORDERED: PANTOPRAZOLE SO40 MG ORAL (14:42)
[2020-09-24] MEDS ORDERED: ELOCON 0.1% TOPIC (14:42)
[2020-09-24] MEDS ORDERED: PYRIDOXINE HCL50 MG ORAL (14:42)
[2020-09-24 16:00] VITALS: BP 133/57
[2020-09-24] MEDS ORDERED: Heplock Flush 100 units/ml 3 ml syr INJ SCH (16:24)
--- NOTE | 2020-09-24 18:34 | NUR ---
NURSE NOTES: Port a cath was de accessed. Prescription was given to patient, discharge instructions given. pt to be picked up by family.
--- NOTE | 2020-09-28 09:10 | Discharge Summary ---
Discharge Summary Discharge Summary _ DATE OF ADMISSION: 09/21/2020 DATE OF DISCHARGE: 09/24/2020 DISCHARGED BY: Dr Martínez REASON FOR ADMISSION: 75 years old male with past medical history of diabetes mellitus, hypertension, gastric CA, presented for evaluation to emergency department , complaining of shortness of breath. Patient was brought by paramedics from the oncologist clinic. Patient was r receiving infusion therapy when he started to feel short of breath. Patient reported cough as well as low-grade fever. No chest pain. Upon evaluation patient had low-grade fever , was tachycardic ,hypoxic, requiring supplemental oxygen. Laboratory work-up revealed leukopenia , stable hemoglobin and hematocrit. Lactic acid was elevated. Troponin negative. Chest x-ray revealed patchy bilateral infiltrates. Rapid COVID-19 was negative. Patient received fluids, pancultured and started on empiric antibiotic . Patient admitted to telemetry floor for further management. CONSULTANTS: pulmonary Dr. Prieto ID specialist Dr. Ladd GI specialist Dr. Owen drapery and upholstery measurer Dr. Altman [facility] COURSE: Patient admitted to telemetry floor. Supplemental oxygen provided and titrated to keep pulse oximetry above 92%. Pulmonary toilet provided. Chest x-ray revealed evidence of bilateral patchy airspace opacity. Venous duplex bilateral lower extremity was negative. CT angiogram of the chest revealed no evidence of pulmonary embolism. Bilateral multifocal infiltrates noted. Repeated Covid 19 by PCR was negative as well. Blood cultures were negative. Sputum culture revealed Alia. Antibiotic regimen optimized as per ID specialist recommendation. Echocardiogram revealed preserved ejection fraction of 55%. No evidence of wall motion abnormality. Pain management was addressed as needed. Hemoglobin and hematocrit were closely monitored with goal to keep hemoglobin above 7. Prior to discharge hemoglobin 9.8 , hematocrit 27.4. Oral intake was closely monitored. Bowel regimen instituted. Home medication continued. Blood sugar was managed with sliding scale of insulin. Electrolytes corrected as needed. DVT and GI prophylaxis provided. Leukopenia resolved. Fevers resolved. Prior to discharge pulse oximetry was stable on room air. ID specialist recommended to discharge on oral Levaquin to complete total 1 week of antibiotic. Patient clinically stabilized and was ready for discharge home FINAL DIAGNOSES: Multifocal bilateral pneumonia SIRS Gastric cancer Electrolyte imbalance Diabetes mellitus Hypertension Hypercholesterolemia Constipation GERD DISCHARGE MEDICATIONS: See Medication Reconciliation list. DISCHARGE INSTRUCTIONS: Patient was discharged home. Follow-up with the primary care provider and oncologist. I have been assigned to dictate discharge summary for this account. I was not involved in the patient's management. Elisabeth Burkett NP Sep 28, 2020 09:10
== END 2020-09-24 19:02 | disposition home or self-care (01) | DRG 193 ==
LOC: EDBD 14:54 → EMR 15:23 → 2E 17:26 → EDBEDREQ 18:22
DX: J18.9 Pneumonia, unspecified organism (principal); J96.00 Acute respiratory failure, unspecified whether with hypoxia or hypercapnia; C16.9 Malignant neoplasm of stomach, unspecified; J84.9 Interstitial pulmonary disease, unspecified; C79.9 Secondary malignant neoplasm of unspecified site; E11.9 Type 2 diabetes mellitus without complications; I10 Essential (primary) hypertension; Z79.84 Long term (current) use of oral hypoglycemic drugs; K21.9 Gastro-esophageal reflux disease without esophagitis; N40.0 Benign prostatic hyperplasia without lower urinary tract symptoms; E87.8 Other disorders of electrolyte and fluid balance, not elsewhere classified
CPT/HCPCS: 36415; 71045; 71275; 80053; 80061; 80069; 80202; 81003; 82248; 82607; 82728; 82746; 82962; 82977; 83036; 83540; 83550; 83605; 83615; 83735; 83880; 84100; 84443; 84484; 84550; 85007; 85025; 85379; 85610; 85651; 85730; 86140; 87040; 87070; 87205; 93005; 93306; 93970; 96361; 96365; 96367; 99285; J1815; J7030; J8499; U0002